=== PATIENT | female | born 1955 | race African-American/Black ===

== ENCOUNTER → 2017-01-03 | Outpatient (CLI) | payer MEDICARE, OTHER ==
--- NOTE | 2017-01-03 15:12 | CT ---
EXAMINATION TYPE: CT sinus wo con DATE OF EXAM: 01/03/2017 COMPARISON: NONE HISTORY: Atypical facial pain CT DLP: 619 mGycm CONTRAST: 0 mL of Omnipaque 350 The paranasal sinuses are examined in the axial plane at 2 mm thick sections. Reconstructed images i n the coronal plane were obtained. There is dental amalgam scatter artifact Mucosal thickening is within the maxillary sinuses. Small air-fluid level may be present more likely on the left. Mucosal thickening is within ethmoid air cells. Retention cyst within the left sphenoi d sinus. Left frontal sinus is hypoplastic but otherwise unremarkable. Mastoid air cells within the [id number] are clear. The septum is evaluated. There is septal deviation to the left. The ostiomeatal units are patent. IMPRESSIONS: 1. Mucosal thickening within maxillary and ethmoid air cells discussed above. 2. Air-fluid level within the left maxillary sinus and possibly within the right maxillary sinus. Cor relate for acute maxillary sinusitis.
== END | disposition home or self-care (01) ==
LOC: RADCTMAIN 12:35
PROVIDERS: ATTEND Otolaryngology Plastic Surgery within the Head & Neck
DX: J34.89 Other specified disorders of nose and nasal sinuses (principal); G50.1 Atypical facial pain
CPT/HCPCS: 70486

== ENCOUNTER → 2017-01-16 | Outpatient (CLI) | payer MEDICARE, OTHER ==
--- NOTE | 2017-01-23 08:57 | MM ---
Reason for exam: screening (asymptomatic). Last mammogram was performed 4 years and 5 months ago. History: Patient is postmenopausal and has history of endometrial cancer at age 34. Family history of breast cancer in cousin at age 62. Physical Findings: A clinical breast exam by your physician is recommended on an annual basis and results should be correlated with mammographic findings. MG Screening Mammo w CAD Bilateral CC and MLO view(s) were taken. Prior study comparison: August 02, 2012, bilateral digital screening mammo w/CAD. July 30, 2010, [facility] DIGITAL LEFT BREAST MAMMOGRAM w/CAD. The breast tissue is heterogeneously dense. This may lower the sensitivity of mammography. No suspicious abnormality. No significant changes when compared with prior studies. ASSESSMENT: Negative, BI-RAD 1 RECOMMENDATION: Routine screening mammogram of both breasts in 1 year.
== END | disposition home or self-care (01) ==
LOC: RADMAMWWP 10:11
PROVIDERS: ATTEND Family Medicine
DX: Z12.31 Encounter for screening mammogram for malignant neoplasm of breast (principal)

== ENCOUNTER 2019-08-07 11:35 | Emergency (ER) | payer MEDICARE, OTHER ==
[2019-08-07] MEDS ORDERED: SODIUM CHLORIDE 0.9% 1,000 ML IV STA (12:08)
--- NOTE | 2019-08-07 12:18 | ED ---
General Adult HPI - General Chief complaint: Dizziness Stated complaint: Syncope Time Seen by Provider: 08/07/19 11:54 Source: patient, RN notes reviewed Mode of arrival: wheelchair Limitations: no limitations - History of Present Illness Initial comments: 64-year-old female with a past medical history of migraines, remote seizures, fibromyalgia, hypertension, anemia presents to the emergency department for a chief complaint of possible syncopal episode. Patient states that she was lying in a chair yesterday when she started having out of body experience. Patient states she could see her self walking. States that suddenly she felt her self slumped back into the chair and wake up. Patient states that her sister was there and was concerned because her sister could not wake her up. Patient states she did have an episode of urinary incontinence throughout this episode. Patient states this never happened before. She does have history of seizures several years ago but that this does not feel similar. Patient feels her normal self at this time except does have a pulsing in her head but denies pain.Patient has no other complaints at this time including shortness of breath, chest pain, abdominal pain, nausea or vomiting, headache, or visual changes. - Related Data Home Medications Medication Instructions Recorded Confirmed DULoxetine HCL [Cymbalta] 60 mg PO BID 10/07/14 08/07/19 Topiramate [Topamax] 100 mg PO BID 12/14/15 08/07/19 Cetirizine HCl 10 mg PO DAILY 08/07/19 08/07/19 Allergies Allergy/AdvReac Type Severity Reaction Status Date / Time lactose Allergy Unknown Abdominal Verified 08/07/19 13:38 Pain, Gas , Nausea codeine Allergy Rash/Hives Verified 08/07/19 13:38 morphine Allergy Rash/Hives/ Verified 08/07/19 13:38 ITCHING tramadol Allergy Rash/Hives Verified 08/07/19 13:38 Review of Systems ROS Statement: Those systems with pertinent positive or pertinent negative responses have been documented in the HPI. ROS Other: All systems not noted in ROS Statement are negative. 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, chronic sinusitis, recurrent uti's, urinary incontinence, frequent nose bleeds, bulging disc in neck and back, scoliosis, carbon monoxide poisoning 2008, hx sleep walking and talking History of Any Multi-Drug Resistant Organisms: None Reported Past Surgical History: No Surgical Hx Reported Additional Past Surgical History / Comment(s): D & C, EGD Past Anesthesia/Blood Transfusion Reactions: Motion Sickness Past Psychological History: Anxiety, Depression Smoking Status: Former smoker Past Alcohol Use History: None Reported Past Drug Use History: None Reported - Past Family History Father Family Medical History: Cancer Additional Family Medical History / Comment(s): type unk for cancer Mother History Unknown: Yes Family Medical History: Congestive Heart Failure (CHF) General Exam Limitations: no limitations General appearance: alert, in no apparent distress Head exam: Present: atraumatic, normocephalic, normal inspection Eye exam: Present: normal appearance, PERRL, EOMI. Absent: scleral icterus, conjunctival injection, periorbital swelling ENT exam: Present: normal exam, mucous membranes moist Neck exam: Present: normal inspection, full ROM. Absent: tenderness, mening ismus, lymphadenopathy Respiratory exam: Present: normal lung sounds bilaterally. Absent: respiratory distress, wheezes, rales, rhonchi, stridor Cardiovascular Exam: Present: regular rate, normal rhythm, normal heart sounds. Absent: systolic murmur, diastolic murmur, rubs, gallop, clicks Neurological exam: Present: alert Psychiatric exam: Present: normal affect, normal mood Course Vital Signs 08/07/19 11:42 Temperature 98.1 F Pulse Rate 70 Respiratory 18 Rate Blood Pressure 173/96 O2 Sat by Pulse 99 Oximetry Medical Decision Making - Medical Decision Making Vitals are stable. CBC CMP unremarkable. Troponin is negative. EKG shows a normal sinus rhythm with a ventricular rate of 67. Chest x-ray shows no acute pulmonary process. CT brain showed no acute intracranial process. Patient was monitored in the emergency department for several hours and did not have any recurring symptoms. I suspect patient had an unwitnessed seizure given history of seizure disorder as well as episode of urinary incontinence during this episode. At this time patient is stable for discharge home to follow up with primary care however I did recommend she returns if she has any additional episodes of this. I discussed this case with attending Dr. Davis who agrees with this assessment and treatment plan. - Lab Data Result diagrams: 08/07/19 12:35 08/07/19 12:35 Lab Results 08/07/19 08/07/19 08/07/19 Range/Units 12:35 12:35 12:35 WBC 4.9 (3.8-10.6) k/uL RBC 3.92 (3.80-5.40) m/uL Hgb 10.4 L (11.4-16.0) gm/dL Hct 33.0 L (34.0-46.0) % MCV 84.3 (80.0-100.0) fL MCH 26.6 (25.0-35.0) pg MCHC 31.6 (31.0-37.0) g/dL RDW 13.2 (11.5-15.5) % Plt Count 267 (150-450) k/uL Neutrophils % 40 % Lymphocytes % 51 % Monocytes % 4 % Eosinophils % 3 % Basophils % 1 % Neutrophils # 1.9 (1.3-7.7) k/uL Lymphocytes # 2.5 (1.0-4.8) k/uL Monocytes # 0.2 (0-1.0) k/uL Eosinophils # 0.1 (0-0.7) k/uL Basophils # 0.0 (0-0.2) k/uL Sodium 142 (137-145) mmol/L Potassium 3.6 (3.5-5.1) mmol/L Chloride 110 H (98-107) mmol/L Carbon Dioxide 24 (22-30) mmol/L Anion Gap 8 mmol/L BUN 10 (7-17) mg/dL Creatinine 0.59 (0.52-1.04) mg/dL Est GFR (CKD-EPI)AfAm >90 (>60 ml/min/1.73 sqM) Est GFR (CKD-EPI)NonAf >90 (>60 ml/min/1.73 sqM) Glucose 118 H (74-99) mg/dL Calcium 9.1 (8.4-10.2) mg/dL Total Bilirubin 0.2 (0.2-1.3) mg/dL AST 23 (14-36) U/L ALT 15 (4-34) U/L Alkaline Phosphatase 97 (38-126) U/L Troponin I <0.012 (0.000-0.034) ng/mL Total Protein 7.2 (6.3-8.2) g/dL Albumin 3.9 (3.5-5.0) g/dL Disposition Clinical Impression: Unresponsive episode Disposition: HOME SELF-CARE Condition: Good Instructions (If sedation given, give patient instructions): Recurrent Seizures in Adults (ED), Syncope (ED) Additional Instructions: Please follow-up with your doctor in one to 2 days. Please return to the emergency room should he have any worsening symptoms or any other episodes. Is patient prescribed a controlled substance at d/c from ED?: No Referrals: Davy Saenz DO [Primary Care Provider] - 1-2 days Time of Disposition: 14:00
[2019-08-07 12:55] LABS: Basophils % (A) 1 %; Eosinophils # (A) 0.1 k/uL (0-0.7); Eosinophils % (A) 3 %; HGB 10.4 gm/dL (11.4-16.0); Lymphocytes # (A) 2.5 k/uL (1.0-4.8); Lymphocytes % (A) 51 %; MCH 26.6 pg (25.0-35.0); MCHC 31.6 g/dL (31.0-37.0); MCV 84.3 fL (80.0-100.0); Mean Platelet Volume 8.8; Monocytes # (A) 0.2 k/uL (0-1.0); Monocytes % (A) 4 %; Neutrophils # (A) 1.9 k/uL (1.3-7.7); Neutrophils % (A) 40 %; Platelet Count 267 k/uL (150-450); RBC 3.92 m/uL (3.80-5.40); RDW 13.2 % (11.5-15.5); WBC 4.9 k/uL (3.8-10.6)
--- NOTE | 2019-08-07 13:14 | CT ---
EXAMINATION TYPE: CT brain wo con DATE OF EXAM: 08/07/2019 COMPARISON: 03/04/2015 INDICATION: Syncope DLP: 1047.4 mGycm, Automated exposure control for dose reduction was used. CONTRAST: None CT of the brain is performed utilizing 3 mm thick sections through the posterior fossa and 3 mm thick sections through the remaining calvarium. Study is performed within 24 hours of arrival to the hosp ital. No abnormal hyperdensity is present to suggest an acute intracranial hemorrhage. No mass lesion is evident. Punctate calcifications within the bilateral basal ganglion likely physiol ogic. No acute infarcts are evident. Ventricles and sulci are appropriate for the patient age. Paranasal sinuses and mastoid air cells within the [id number] are clear. IMPRESSIONS: 1. No acute intracranial process.
[2019-08-07 13:15] LABS: ALT 15 U/L (4-34); AST 23 U/L (14-36); African American GFR (CKD) >90 (>60 ml/min/1.73 sqM); Albumin 3.9 g/dL (3.5-5.0); Alkaline Phosphatase 97 U/L (38-126); Anion Gap 8 mmol/L; Blood Urea Nitrogen 10 mg/dL (7-17); Calcium 9.1 mg/dL (8.4-10.2); Carbon Dioxide 24 mmol/L (22-30); Chloride 110 mmol/L (98-107); Glucose 118 mg/dL (74-99); Non-African American GFR(CKD) >90 (>60 ml/min/1.73 sqM); Potassium 3.6 mmol/L (3.5-5.1); Sodium 142 mmol/L (137-145); Total Bilirubin 0.2 mg/dL (0.2-1.3); Total Protein 7.2 g/dL (6.3-8.2)
--- NOTE | 2019-08-07 13:15 | XR ---
EXAMINATION TYPE: XR chest 1V portable DATE OF EXAM: 08/07/2019 COMPARISON: 12/14/2015 INDICATION: Syncope TECHNIQUE: Single frontal view of the chest is obtained. FINDINGS: The heart size is normal. The pulmonary vasculature is normal. The lungs are clear. IMPRESSION: 1. No acute pulmonary process.
[2019-08-07 14:29] VITALS: BP 176/87; PULSE 62; RESP 16; TEMP 97.7
== END 2019-08-07 14:29 | disposition home or self-care (01) ==
LOC: EC 11:35
DX: R41.89 Other symptoms and signs involving cognitive functions and awareness (principal); R42 Dizziness and giddiness; R55 Syncope and collapse; F41.9 Anxiety disorder, unspecified; F32.9 Major depressive disorder, single episode, unspecified; I10 Essential (primary) hypertension; Z79.899 Other long term (current) drug therapy; Z88.5 Allergy status to narcotic agent; Z91.011 Allergy to milk products; Z87.891 Personal history of nicotine dependence; Z85.42 Personal history of malignant neoplasm of other parts of uterus
CPT/HCPCS: 36415; 70450; 71045; 80053; 84484; 85025; 93005; 96360; 99284

== ENCOUNTER 2020-04-15 11:14 | Day surgery (SDC) | payer MEDICARE ==
--- NOTE | 2020-04-15 08:35 | P.GSHP ---
History of Present Illness H&P Date: 04/15/20 CHIEF COMPLAINT: Colon screen HISTORY OF PRESENT ILLNESS: The patient is a 65-year-old female who presents for colon screen. Lower endoscopy was offered for further evaluation and management. PAST MEDICAL HISTORY: Please see list. PAST SURGICAL HISTORY: Please see list. MEDICATIONS: Please see list. ALLERGIES: Please see list. SOCIAL HISTORY: No illicit drug use FAMILY HISTORY: No reports of Crohn disease or ulcerative colitis. REVIEW OF ORGAN SYSTEMS: CONSTITUTIONAL: No reports of fevers or chills. PHYSICAL EXAM: VITAL SIGNS: Stable GENERAL: Well-developed pleasant in no acute distress. HEENT: No scleral icterus. Extraocular movements grossly intact. Moist buccal mucosa. NECK: Supple without lymphadenopathy. CHEST: Unlabored respirations. Equal bilateral excursions. CARDIOVASCULAR: Regular rate and rhythm. Distal 2+ pulses. ABDOMEN: Soft, nontender, nondistended. MUSCULOSKELETAL: No clubbing, cyanosis, or edema. ASSESSMENT: 1. Colon screen. PLAN: 1. 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, chronic sinusitis, recurrent uti's, urinary incontinence, frequent nose bleeds, bulging disc in neck and back, scoliosis, carbon monoxide poisoning 2007, hx sleep walking and talking History of Any Multi-Drug Resistant Organisms: None Reported Past Surgical History: No Surgical Hx Reported Additional Past Surgical History / Comment(s): D & C, EGD Past Anesthesia/Blood Transfusion Reactions: Motion Sickness Past Psychological History: Anxiety, Depression Past Alcohol Use History: None Reported Past Drug Use History: None Reported - Past Family History Father Family Medical History: Cancer Additional Family Medical History / Comment(s): type unk for cancer Mother History Unknown: Yes Family Medical History: Congestive Heart Failure (CHF) Medications and Allergies Home Medications Medication Instructions Recorded Confirmed Type DULoxetine HCL [Cymbalta] 60 mg PO BID 10/07/14 08/07/19 History Topiramate [Topamax] 100 mg PO BID 12/14/15 08/07/19 History Cetirizine HCl 10 mg PO DAILY 08/07/19 08/07/19 History Allergies Allergy/AdvReac Type Severity Reaction Status Date / Time lactose Allergy Unknown Abdominal Verified 08/07/19 13:38 Pain, Gas , Nausea codeine Allergy Rash/Hives Verified 08/07/19 13:38 morphine Allergy Rash/Hives/ Verified 08/07/19 13:38 ITCHING tramadol Allergy Rash/Hives Verified 08/07/19 13:38
--- NOTE | 2020-04-15 08:50 | P.HPADDEND ---
H&P Addendum H&P Addendum Date: 04/15/20 Patient canceled case
[~2020-04-15 11:14] MED LIST: LACTATED RINGERS 1,000 ML IV SCH; LIDOCAINE 1% (10MG/ML) FOR IV START INTRADERMA PRN
[2020-04-15 11:33] VITALS: TEMP 96.6
[2020-04-15] MEDS ORDERED: PROPOFOL 10 MG/ML 20 ML VIAL IV ONE (12:26)
--- NOTE | 2020-04-15 12:52 | P.PCN ---
Date of Procedure: 04/15/20 Description of Procedure: PREOPERATIVE DIAGNOSIS: Rectal bleeding with melena POSTOPERATIVE DIAGNOSIS: Internal/external hemorrhoids, complicated, grade 3 Diverticulosis, scattered. Poor prep OPERATION: Colonoscopy to the cecum, ileocecal valve and appendiceal orifice. SURGEON: Ammy Almaraz MD. ANESTHESIA: MAC. INDICATIONS: The patient is a 65-year-old female who presents with melena including rectal bleeding for over 3 weeks. Lower endoscopy are for further diagnostic assessment. Benefits and risks were described and informed consent was obtained. DESCRIPTION OF PROCEDURE: The patient had undergone Suprep. The patient had been brought into the operating room and laid in the left lateral decubitus position. After adequate intravenous sedation, the rectum was examined with 2% lidocaine jelly. No external hemorrhoids were encountered. The rectal tone was within normal limits. No lesions were palpated in the rectal vault. An Olympus colonoscope was advanced until the cecum, ileocecal valve and appendiceal orifice. The prep was poor limiting complete view of the mucosa. Scattered diverticulosis was encountered. No colonic polyps were found. No evidence of focal colitis was found. Retroflexion of the scope demonstrated grade 3 internal hemorrhoids without active bleeding or inflammation. The colon was desufflated. The patient had tolerated the procedure well. Withdrawal time was over 6 minutes. FINDINGS: Aronchick preparation quality scale 3 (1-5) Internal hemorrhoids, grade 3 External prolapsed hemorrhoids, grade 3 Scattered diverticulosis No arteriovenous malformations. No adenomatous polyps. No focal colitis. RECOMMENDATIONS: Lower endoscopy in 5 2025 Recommend liquid diet prior Plan - Discharge Summary New Discharge Prescriptions: Continue DULoxetine HCL [Cymbalta] 60 mg PO BID Cetirizine HCl 10 mg PO DAILY Discharge Medication List DULoxetine HCL [Cymbalta] 60 mg PO BID 10/07/14 [History] Cetirizine HCl 10 mg PO DAILY 08/07/19 [History] Follow up Appointment(s)/Referral(s): Ammy Almaraz MD [STAFF PHYSICIAN] - 04/21/20 Patient Instructions/Handouts: Diverticulosis Diet (GEN), Diverticulosis (ED) Activity/Diet/Wound Care/Special Instructions: Repeat colonoscopy years, 2025. Recommend liquid diet Discharge Disposition: HOME SELF-CARE
[2020-04-15 13:38] VITALS: BP 142/76; PULSE 88; RESP 20
--- NOTE | 2020-04-17 08:39 | CDI ---
Date: 04.17.20 CDS/Balloon Maker Name: Jeannie Pérez Phone: If any questions, call Tere [facility] [employer] at [phone] Patient Name: Mckayla Munoz Admit Date 04.15.20 Discharge Date: 04.15.20 ATTENTION: The [facility] Coding Staff appreciate your assistance in clarifying documentation. Please respond to the clarification below the line at the bottom and electronically sign. The [facility] Coding staff will review the response and follow-up if needed. Please note: Queries are made part of the Legal Health Record. If you have any questions, please contact the [employer]. Dear Dr. Almaraz In order to code to the greatest specificity and for the greatest reimbursement I need the following information: In the description of procedure you have documented no external hemorrhoids were encountered, but in the findings you have documented external prolapsed hemorrhoids, grade 3. Please clarify. Thank you for your kind consideration. DESCRIPTION OF PROCEDURE: The patient had undergone Suprep. The patient had been brought into the operating room and laid in the left lateral decubitus position. After adequate intravenous sedation, the rectum was examined with 2% lidocaine jelly. External hemorrhoids were encountered. The rectal tone was within normal limits. No lesions were palpated in the rectal vault. An Olympus colonoscope was advanced until the cecum, ileocecal valve and appendiceal orifice. The prep was poor limiting complete view of the mucosa. Scattered diverticulosis was encountered. No colonic polyps were found. No evidence of focal colitis was found. Retroflexion of the scope demonstrated grade 3 internal hemorrhoids without active bleeding or inflammation. The colon was desufflated. The patient had tolerated the procedure well. Withdrawal time was over 6 minutes. 04/17/[address] [facility]
== END 2020-04-15 13:38 | disposition home or self-care (01) ==
LOC: ORWHC2ENDO 11:14
PROVIDERS: ATTEND Surgery Plastic and Reconstructive Surgery
DX: K57.31 Diverticulosis of large intestine without perforation or abscess with bleeding (principal); K64.2 Third degree hemorrhoids; K64.8 Other hemorrhoids; M79.7 Fibromyalgia; K21.9 Gastro-esophageal reflux disease without esophagitis; I10 Essential (primary) hypertension; G43.909 Migraine, unspecified, not intractable, without status migrainosus; G40.909 Epilepsy, unspecified, not intractable, without status epilepticus; G57.83 Other specified mononeuropathies of bilateral lower limbs; G56.83 Other specified mononeuropathies of bilateral upper limbs; I49.9 Cardiac arrhythmia, unspecified; J32.9 Chronic sinusitis, unspecified; R32 Unspecified urinary incontinence; M50.20 Other cervical disc displacement, unspecified cervical region; M51.9 Unspecified thoracic, thoracolumbar and lumbosacral intervertebral disc disorder; M41.9 Scoliosis, unspecified; F41.9 Anxiety disorder, unspecified; F32.9 Major depressive disorder, single episode, unspecified; Z85.42 Personal history of malignant neoplasm of other parts of uterus; Z86.69 Personal history of other diseases of the nervous system and sense organs; Z87.19 Personal history of other diseases of the digestive system; Z86.2 Personal history of diseases of the blood and blood-forming organs and certain disorders involving the immune mechanism; Z87.440 Personal history of urinary (tract) infections; Z91.89 Other specified personal risk factors, not elsewhere classified; Z98.890 Other specified postprocedural states; Z87.898 Personal history of other specified conditions; Z79.899 Other long term (current) drug therapy; Z91.011 Allergy to milk products; Z88.5 Allergy status to narcotic agent; Z80.9 Family history of malignant neoplasm, unspecified; Z82.49 Family history of ischemic heart disease and other diseases of the circulatory system
CPT/HCPCS: 45378; J2704

== ENCOUNTER 2020-04-30 07:36 | Day surgery (SDC) | payer MEDICARE ==
[2020-04-27 12:07] VITALS: BMI 31.8
--- NOTE | 2020-04-30 05:37 | P.GSHP ---
History of Present Illness H&P Date: 04/30/20 CHIEF COMPLAINT: GERD HISTORY OF PRESENT ILLNESS: The patient is a 65-year-old female who presents reports gastroesophageal reflux disease. Upper endoscopy was offered for further evaluation and management. PAST MEDICAL HISTORY: Please see list. PAST SURGICAL HISTORY: Please see list. MEDICATIONS: Please see list. ALLERGIES: Please see list. SOCIAL HISTORY: No illicit drug use FAMILY HISTORY: No reports of Crohn disease or ulcerative colitis. REVIEW OF ORGAN SYSTEMS: CONSTITUTIONAL: No reports of fevers or chills. GI: Denies any blood in stools or constipation. PHYSICAL EXAM: VITAL SIGNS: Stable GENERAL: Well-developed and pleasant in no acute distress. HEENT: No scleral icterus. Extraocular movements grossly intact. Moist buccal mucosa. NECK: Supple without lymphadenopathy. CHEST: Unlabored respirations. Equal bilateral excursions. CARDIOVASCULAR: Regular rate and rhythm. Distal 2+ pulses. ABDOMEN: Soft, nondistended. MUSCULOSKELETAL: No clubbing, cyanosis, or edema. ASSESSMENT: 1. Gastroesophageal reflux disease PLAN: 1. 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, chronic sinusitis, recurrent uti's, urinary incontinence, hx frequent nose bleeds, bulging disc in neck and back, scoliosis, carbon monoxide poisoning 2007, hx sleep walking and talking History of Any Multi-Drug Resistant Organisms: None Reported Past Surgical History: No Surgical Hx Reported Additional Past Surgical History / Comment(s): D & C, EGD, colonoscopy Past Anesthesia/Blood Transfusion Reactions: Motion Sickness Smoking Status: Former smoker - Past Family History Father Family Medical History: Cancer Additional Family Medical History / Comment(s): type unk for cancer Mother History Unknown: Yes Family Medical History: Congestive Heart Failure (CHF) Medications and Allergies Home Medications Medication Instructions Recorded Confirmed Type No Known Home Medications 04/27/20 04/27/20 History Allergies Allergy/AdvReac Type Severity Reaction Status Date / Time lactose Allergy Unknown Abdominal Verified 04/27/20 12:02 Pain, Gas , Nausea codeine Allergy Rash/Hives Verified 04/27/20 12:02 morphine Allergy Rash/Hives/ Verified 04/27/20 12:02 ITCHING tramadol Allergy Rash/Hives Verified 04/27/20 12:02
[~2020-04-30 07:36] MED LIST changes: +DEXAMETHASONE SOD PHOSPHATE 4 MG/ML 1 ML VIAL IV ONE; +ONDANSETRON 4 MG/2 ML VIAL IVP ONE
[2020-04-30 08:03] VITALS: RESP 16; TEMP 97
[2020-04-30] MEDS ORDERED: LIDOCAINE 1% INJ 10MG/ML (20 ML MDV) ONE (08:27)
[2020-04-30] MEDS ORDERED: PROPOFOL 10 MG/ML 20 ML VIAL IV ONE (08:27)
--- NOTE | 2020-04-30 08:44 | P.PCN ---
Date of Procedure: 04/30/20 Description of Procedure: PREOPERATIVE DIAGNOSIS: Gastroesophageal reflux disease. Anemia POSTOPERATIVE DIAGNOSIS: Gastroesophageal reflux disease. Anemia Gastritis OPERATION: Esophagogastroduodenoscopy with biopsies along antrum. SURGEON: Ammy Almaraz MD ANESTHESIA: MAC. INDICATIONS: The patient is a 65-year-old female who presents with a history of reflux disease. Benefits and risks of the procedure were described. Informed consent was obtained. DESCRIPTION: The patient was brought into the endoscopy suite and laid in the left lateral decubitus position. An Olympus gastroscope was passed along the posterior oropharynx down to the distal esophagus where the squamocolumnar junction was encountered at 35 cm from the incisors. The stomach was entered and no bile reflux was found. Additional findings are listed below. Biopsies with cold forceps were obtained of the antrum. The first through third portion of the duodenum was examined and unremarkable. Retroflexion of the scope confirmed Hill grade 3 lower esophageal valve. The squamocolumnar junction demonstrated LA grade A erosive esophagitis. The stomach was desufflated. The patient tolerated the procedure well. FINDINGS: Squamocolumnar junction 35 cm from the incisors. Diaphragmatic hiatus at 35 cm. Hill grade 3 lower esophageal valve. LA grade A erosive esophagitis. No active duodenitis. Chronic gastritis RECOMMENDATIONS: Upper endoscopy as needed. Plan - Discharge Summary Discharge Rx Participant: No New Discharge Prescriptions: No Action No Known Home Medications Discharge Medication List No Known Home Medications 04/27/20 [History] Follow up Appointment(s)/Referral(s): Ammy Almaraz MD [STAFF PHYSICIAN] - 05/12/20 Patient Instructions/Handouts: Gastritis (DC), Diet for Stomach Ulcers and Gastritis (ED) Discharge Disposition: HOME SELF-CARE
[2020-04-30 09:02] VITALS: BP 171/78; PULSE 66
== END 2020-04-30 09:15 | disposition home or self-care (01) ==
LOC: ORWHC2ENDO 07:36
PROVIDERS: ATTEND Surgery Plastic and Reconstructive Surgery
DX: K21.00 Gastro-esophageal reflux disease with esophagitis, without bleeding (principal); D64.9 Anemia, unspecified; K29.50 Unspecified chronic gastritis without bleeding; M79.7 Fibromyalgia; Z85.42 Personal history of malignant neoplasm of other parts of uterus; Z87.891 Personal history of nicotine dependence; Z82.49 Family history of ischemic heart disease and other diseases of the circulatory system; Z88.5 Allergy status to narcotic agent; Z87.440 Personal history of urinary (tract) infections
CPT/HCPCS: 88305; 43239; J2001; J2704

== ENCOUNTER → 2020-05-18 | Outpatient (CLI) | payer MEDICARE, OTHER ==
[2020-05-18 23:50] LABS: HCT 32.6 % (37.2-46.3); HGB 10.7 g/dL (12.0-15.0); MCHC 32.8 g/dL (32.0-37.0); MCV 82.3 fL (80.0-97.0); Mean Platelet Volume 12.7 fL (9.5-12.2); Platelet Count 315 X 10*3/uL (140-440); RBC 3.96 X 10*6/uL (4.10-5.20); WBC 5.82 X 10*3/uL (4.50-10.00)
[2020-05-19 00:42] LABS: INR 1.02 (0.90-1.11); Partial Thromboplastin Time 26.4 sec (23.5-31.0); Prothrombin Time 11.1 sec (9.9-11.9)
[2020-05-19 03:53] LABS: Hemoglobin A1C 6.4 % (4.0-6.0)
[2020-05-19 04:15] LABS: % Iron Saturation 17.09 (12.00-45.00); ALT 26 U/L (8-44); AST 30 U/L (13-35); African American GFR (CKD) 90.9 (60.0-200.0); Albumin/Globulin Ratio 1.81 (1.60-3.17); Alkaline Phosphatase 120 U/L (41-126); BUN/Creat Ratio 11.25 Ratio (12.00-20.00); Calcium 10.1 mg/dL (8.7-10.3); Carbon Dioxide 25.2 mmol/L (21.6-31.8); Chloride 108 mmol/L (96-109); Chol/HDL Ratio 3.55; Cholesterol 195 mg/dL (0-200); Globulin 2.6 g/dL (1.6-3.3); Glucose 115 mg/dL (70-110); Iron 67 ug/dL (50-170); LDL Cholesterol,Calculated 117.2 mg/dL (0.0-131.0); Magnesium 1.7 mg/dL (1.5-2.4); Non-African American GFR(CKD) 78.5 (60.0-200.0); Phosphorus 3.8 mg/dL (2.4-5.1); Potassium 3.8 mmol/L (3.5-5.5); Sodium 144 mmol/L (135-145); Total Bilirubin 0.3 mg/dL (0.3-1.2); Total Iron Binding Capacity 392 ug/dL (228-460); Total Protein 7.3 g/dL (6.2-8.2)
[2020-05-19 04:23] LABS: Ferritin 41.9 ng/mL (10.0-291.0)
[2020-05-19 05:07] LABS: Folate, Serum >24.0 ng/mL
[2020-05-19 12:55] LABS: Zinc, Serum 73 ug/dL (60-130)
[2020-05-20 06:34] LABS: Vitamin A 42 ug/dL (38-106)
[2020-05-20 06:42] LABS: Vit B1(Thiamine) 39 ug/L (38-122)
== END | disposition home or self-care (01) ==
LOC: LABWHC1 14:33
PROVIDERS: ATTEND Surgery Plastic and Reconstructive Surgery
DX: E55.9 Vitamin D deficiency, unspecified (principal); E21.1 Secondary hyperparathyroidism, not elsewhere classified; E66.01 Morbid (severe) obesity due to excess calories; E89.1 Postprocedural hypoinsulinemia; N19 Unspecified kidney failure; D50.8 Other iron deficiency anemias; K90.89 Other intestinal malabsorption; K74.1 Hepatic sclerosis; K50.90 Crohn's disease, unspecified, without complications
CPT/HCPCS: 36415; 80053; 80061; 82306; 82525; 82607; 82728; 82746; 83036; 83540; 83550; 83735; 83970; 84100; 84134; 84255; 84425; 84443; 84590; 84630; 85027; 85610; 85730

== ENCOUNTER → 2022-03-15 | Outpatient (CLI) | payer MEDICARE, OTHER ==
--- NOTE | 2022-03-16 07:31 | MR ---
EXAMINATION TYPE: MR brain wo/w con DATE OF EXAM: 03/15/2022 3:37 PM CLINICAL INDICATION:Female, 67 years old with history of R51.0 HEADACHE WITH ORTHOSTATIC COMPONENT; COMPARISON: CT brain 08/07/2019, MRI brain 01/02/2015 TECHNIQUE: Multi planar, multi sequence imaging was performed through the brain including: T1, T2, In version recovery, susceptibility weighted imaging and gradient echo imaging and Diffusion weighted im aging. The patient was then given intravenous contrast and multi planar, T1 fat-saturation images wer e obtained. IV Contrast: 8 cc Gadavist FINDINGS: The cerebellar tonsils to 2 mm below the foramen magnum. The purvis-white junctions, ventricular system , basal cisterns appear unremarkable. Diffusion-weighted imaging shows no evidence of restricted diff usion to suggest acute/subacute infarct. Intracranial arterial flow voids are maintained. Midline str uctures show no abnormality. Few scattered foci of high T2 signal intensity are seen within the periv entricular and deep white matter. The susceptibility weighted images do not reveal any evidence for m icro-hemorrhage. After administration of gadolinium, no abnormal enhancement is seen. The bone marrow signal is within normal limits. Paranasal sinuses and mastoid air cells: Mild scattered paranasal sinus disease. Visualized orbits: Orbital contents are intact. IMPRESSION: 1. No evidence of intracranial mass, acute/subacute infarct, or abnormal enhancement. 2. Minimal cerebellar tonsillar ectopia 3. Minimal nonspecific white matter changes, likely related t o small vessel ischemic disease
== END | disposition home or self-care (01) ==
LOC: RADMRIMAIN 14:50
PROVIDERS: ATTEND Family Medicine
DX: R90.82 White matter disease, unspecified (principal); R51.0 Headache with orthostatic component, not elsewhere classified; Q04.8 Other specified congenital malformations of brain
CPT/HCPCS: 70553; A9585

== ENCOUNTER → 2022-06-16 | Outpatient (CLI) | payer MEDICARE, OTHER ==
--- NOTE | 2022-06-16 16:01 | MR ---
EXAMINATION TYPE: MR brain wo con DATE OF EXAM: 06/16/2022 2:43 PM COMPARISON: MRI brain 03/15/2022. 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 No gadolinium was given. FINDINGS: The cerebellar tonsils to 2 mm below the foramen magnum. The purvis-white junctions, ventricular system , basal cisterns appear unremarkable. Diffusion-weighted imaging shows no evidence of restricted diff usion to suggest acute/subacute infarct. Intracranial arterial flow voids are maintained. Midline str uctures show no abnormality. Few scattered foci of high T2 signal intensity are seen within the periv entricular and deep white matter. The susceptibility weighted images do not reveal any evidence for m icro-hemorrhage. The bone marrow signal is within normal limits. Paranasal sinuses and mastoid air cells: Paranasal sinus disease most pronounced involving the maxill paulie sinuses and ethmoid air cells. Visualized orbits: Orbital contents are intact. IMPRESSION: 1. No evidence of intracranial mass, acute/subacute infarct, or significant change from prior.. 2. Minimal cerebellar tonsillar ectopiaNonspecific white matter changes, likely related to small vess el ischemic disease 3. Minimal nonspecific white matter changes, likely related to small vessel ischemic disease
== END | disposition home or self-care (01) ==
LOC: RADMRIMAIN 14:01
PROVIDERS: ATTEND Psychiatry & Neurology Neurology
DX: R90.82 White matter disease, unspecified (principal); R27.0 Ataxia, unspecified
CPT/HCPCS: 70551

== ENCOUNTER 2022-07-21 15:25 | Emergency (ER) | payer MEDICARE, OTHER ==
[2022-07-21 16:02] VITALS: TEMP 97.7
[2022-07-21] MEDS ORDERED: SODIUM CHLORIDE 0.9% 500 ML 500 ML IV STA (16:07)
--- NOTE | 2022-07-21 16:08 | ED ---
Recheck HPI - General Chief Complaint: Recheck/Abnormal Lab/Rx Stated Complaint: NEEDS PLASMA INFUSION-PCP/LABS SENT Time Seen by Provider: 07/21/22 16:07 Source: patient, RN notes reviewed, old records reviewed Mode of arrival: ambulatory Limitations: no limitations - History of Present Illness Initial Comments: This is a 67-year-old female to the ER. She presents today for abnormal lab values. Patient was told she has a low potassium level and sensitivity ER for further management. Patient is very upset that she is currently in the emergency department or the hospital. She does not participate in history of present illness MD Complaint: abnormal lab (Low potassium) -: unknown Returns Today for: Called Because of Abnormal Lab/Test Symptoms Since Prior Visit: no new symptoms Associated Symptoms: none Treatments Prior to Arrival: other (0) - Related Data Home Medications Medication Instructions Recorded Confirmed Chlorthalidone [Hygroton] 25 mg PO DAILY 07/21/22 07/21/22 Docusate [Colace] 100 mg PO DAILY 07/21/22 07/21/22 Pregabalin 75 mg PO TID 07/21/22 07/21/22 amLODIPine [Norvasc] 10 mg PO DAILY 07/21/22 07/21/22 sitaGLIPtin [Januvia] 100 mg PO DAILY 07/21/22 07/21/22 Allergies Allergy/AdvReac Type Severity Reaction Status Date / Time lactose Allergy Unknown Abdominal Verified 07/21/22 17:26 Pain, Gas , Nausea codeine Allergy Rash/Hives Verified 07/21/22 17:26 morphine Allergy Rash/Hives/ Verified 07/21/22 17:26 ITCHING tramadol Allergy Rash/Hives Verified 07/21/22 17:26 Review of Systems ROS Statement: Those systems with pertinent positive or pertinent negative responses have been documented in the HPI. ROS Other: All systems not noted in ROS Statement are negative. 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, chronic sinusitis, recurrent uti's, urinary incontinence, frequent nose bleeds, bulging disc in neck and back, scoliosis, carbon monoxide poisoning 2008, hx sleep walking and talking History of Any Multi-Drug Resistant Organisms: None Reported Past Surgical History: No Surgical Hx Reported Additional Past Surgical History / Comment(s): D & C, EGD Past Anesthesia/Blood Transfusion Reactions: Motion Sickness Past Psychological History: Anxiety, Depression Smoking Status: Never smoker Past Alcohol Use History: None Reported Past Drug Use History: None Reported - Past Family History Father Family Medical History: Cancer Additional Family Medical History / Comment(s): type unk for cancer Mother History Unknown: Yes Family Medical History: Congestive Heart Failure (CHF) General Exam Limitations: no limitations General appearance: alert, in no apparent distress Head exam: Present: atraumatic, normocephalic, normal inspection Eye exam: Present: normal appearance, PERRL, EOMI. Absent: scleral icterus, conjunctival injection, periorbital swelling ENT exam: Present: normal exam, mucous membranes moist Neck exam: Present: normal inspection. Absent: tenderness, meningismus, lymphadenopathy Respiratory exam: Present: normal lung sounds bilaterally. Absent: respiratory distress, wheezes, rales, rhonchi, stridor Cardiovascular Exam: Present: regular rate, normal rhythm, normal heart sounds. Absent: systolic murmur, diastolic murmur, rubs, gallop, clicks GI/Abdominal exam: Present: soft, normal bowel sounds. Absent: distended, tenderness, guarding, rebound, rigid Extremities exam: Present: normal inspection, full ROM, normal capillary refill. Absent: tenderness, pedal edema, joint swelling, calf tenderness Back exam: Present: normal inspection Neurological exam: Present: alert, oriented X3, CN II-XII intact Psychiatric exam: Present: normal affect, normal mood Skin exam: Present: warm, dry, intact, normal color. Absent: rash Course Vital Signs 07/21/22 07/21/22 15:55 18:28 Temperature 97.7 F Pulse Rate 71 72 Respiratory 18 16 Rate Blood Pressure 137/73 131/82 O2 Sat by Pulse 97 98 Oximetry - Reevaluation(s) Reevaluation #1: 07/21/22 21:34 Medical records reviewed Reevaluation #2: 07/21/22 21:34 Patient's potassium is low given potassium replacement Patient does appear to fill her potassium replacement and a garbage and did not take discharge instructions Reevaluation #3: 07/21/22 21:34 Patient remains without complaint Reevaluation #4: 07/21/22 21:35 Was pt. sent in by a medical professional or institution? @ -Yes patient was sent in after outpatient lab values showed low potassium Did you speak to anyone other than the patient for history? @ -no Did you review nursing and triage notes? @ -agree Were old charts reviewed? @ -no Differential Diagnosis? @ -prior EKG interpreted by me (3pts min.)? @ -yes X-rays interpreted by me (1pt min.)? @ -no CT interpreted by me (1pt min.)? @ -no U/S interpreted by me (1pt. min.)? @ -no What testing was considered but not performed? (CT, X-rays, U/S, labs)? Why? @ -no What meds were considered but not given? Why? @ -no Did you discuss the management of the patient with other professionals? @ -no Did you reconcile home meds? @ -no Was smoking cessation discussed for >3mins.? @ -no Was critical care preformed (if so, how long)? @ -no Were there social determinants of health that impacted care today? How? (Homelessness, low income, unemployed, alcoholism, drug addiction, transportation, low edu. Level, literacy, decrease access to med. care, detention, rehab)? @ -no Was there de-escalation of care discussed even if they declined? (Discuss DNR or withdrawal of care, Hospice)? @ -no What co-morbidities impacted this encounter? (DM, HTN, Smoking, COPD, CAD, Cancer, CVA, Hep., AIDS, mental health diagnosis, sleep apnea, morbid obesity)? @ -none Was patient admitted / discharged? @ - Undiagnosed new problem with uncertain prognosis? @ -no Drug Therapy requiring intensive monitoring for toxicity (Heparin, Nitro, Insulin, Cardizem)? @ -no Were any procedures done? @ -no Diagnosis/symptom? @ -Hypokalemia Acute, or Chronic, or Acute on Chronic? @ -no Uncomplicated (without systemic symptoms) or Complicated (systemic symptoms)? @ -uncomplicated Side effects of treatment? @ -no Exacerbation, Progression, or Severe Exacerbation] @ -no Poses a threat to life or bodily function? @ -yes secondary to arrhythmia from electrolyte arrangement Medical Decision Making - Medical Decision Making 67 female to the emergency department. Patient presents today for evaluation of abnormal outpatient labs. Low potassium. No other complaints. Patient's findings are similar here in the ER she did not take potassium supplementation and discharged emergency department unhappy but did not make clear why - Lab Data Result diagrams: 07/21/22 16:42 07/21/22 16:42 Lab Results 07/21/22 07/21/22 Range/Units 16:42 16:42 WBC 6.7 (3.8-10.6) k/uL RBC 4.25 (3.80-5.40) m/uL Hgb 11.4 (11.4-16.0) gm/dL Hct 34.0 (34.0-46.0) % MCV 79.9 L (80.0-100.0) fL MCH 26.9 (25.0-35.0) pg MCHC 33.6 (31.0-37.0) g/dL RDW 13.3 (11.5-15.5) % Plt Count 450 (150-450) k/uL MPV 8.7 Neutrophils % 41 % Lymphocytes % 50 % Monocytes % 4 % Eosinophils % 2 % Basophils % 0 % Neutrophils # 2.8 (1.3-7.7) k/uL Lymphocytes # 3.3 (1.0-4.8) k/uL Monocytes # 0.2 (0-1.0) k/uL Eosinophils # 0.1 (0-0.7) k/uL Basophils # 0.0 (0-0.2) k/uL Sodium 137 (137-145) mmol/L Potassium 2.7 L* (3.5-5.1) mmol/L Chloride 89 L (98-107) mmol/L Carbon Dioxide 36 H (22-30) mmol/L Anion Gap 12 mmol/L BUN 11 (7-17) mg/dL Creatinine 0.72 (0.52-1.04) mg/dL Est GFR (CKD-EPI)AfAm >90 (>60 ml/min/1.73 sqM) Est GFR (CKD-EPI)NonAf 89 (>60 ml/min/1.73 sqM) Glucose 128 H (74-99) mg/dL Calcium 9.6 (8.4-10.2) mg/dL Phosphorus 2.7 (2.5-4.5) mg/dL Magnesium 2.0 (1.6-2.3) mg/dL Total Bilirubin 0.5 (0.2-1.3) mg/dL AST 33 (14-36) U/L ALT 23 (4-34) U/L Alkaline Phosphatase 99 (38-126) U/L Total Protein 7.9 (6.3-8.2) g/dL Albumin 4.4 (3.5-5.0) g/dL - EKG Data -: EKG Interpreted by Me (EKG is sinus 59 ND 195 QRS 91 QTc 417) Disposition Clinical Impression: Hypokalemia Disposition: HOME SELF-CARE Condition: Good Instructions (If sedation given, give patient instructions): Hypokalemia (ED) Is patient prescribed a controlled substance at d/c from ED?: No Referrals: Davy Saenz DO [Primary Care Provider] - 1-2 days Time of Disposition: 17:50
[2022-07-21 16:55] LABS: Basophils % (A) 0 %; Eosinophils # (A) 0.1 k/uL (0-0.7); Eosinophils % (A) 2 %; HGB 11.4 gm/dL (11.4-16.0); Lymphocytes # (A) 3.3 k/uL (1.0-4.8); Lymphocytes % (A) 50 %; MCH 26.9 pg (25.0-35.0); MCHC 33.6 g/dL (31.0-37.0); MCV 79.9 fL (80.0-100.0); Mean Platelet Volume 8.7; Monocytes # (A) 0.2 k/uL (0-1.0); Monocytes % (A) 4 %; Neutrophils # (A) 2.8 k/uL (1.3-7.7); Neutrophils % (A) 41 %; Platelet Count 450 k/uL (150-450); RBC 4.25 m/uL (3.80-5.40); RDW 13.3 % (11.5-15.5); WBC 6.7 k/uL (3.8-10.6)
[2022-07-21 17:12] LABS: ALT 23 U/L (4-34); AST 33 U/L (14-36); African American GFR (CKD) >90 (>60 ml/min/1.73 sqM); Albumin 4.4 g/dL (3.5-5.0); Alkaline Phosphatase 99 U/L (38-126); Anion Gap 12 mmol/L; Blood Urea Nitrogen 11 mg/dL (7-17); Calcium 9.6 mg/dL (8.4-10.2); Carbon Dioxide 36 mmol/L (22-30); Chloride 89 mmol/L (98-107); Glucose 128 mg/dL (74-99); Non-African American GFR(CKD) 89 (>60 ml/min/1.73 sqM); Phosphorus 2.7 mg/dL (2.5-4.5); Sodium 137 mmol/L (137-145); Total Bilirubin 0.5 mg/dL (0.2-1.3); Total Protein 7.9 g/dL (6.3-8.2)
[2022-07-21 17:14] LABS: Potassium 2.7 mmol/L (3.5-5.1)
[2022-07-21] MEDS ORDERED: POTASSIUM BICARBONATE/CIT AC 20 MEQ TABLET.EFF PO ONE ×2 (18:00→19:00)
[2022-07-21 18:30] VITALS: BP 131/82; PULSE 72; RESP 16
== END 2022-07-21 18:32 | disposition home or self-care (01) ==
LOC: EC 15:25
DX: E87.6 Hypokalemia (principal); I10 Essential (primary) hypertension; F41.9 Anxiety disorder, unspecified; F32.A Depression, unspecified; Z79.84 Long term (current) use of oral hypoglycemic drugs; Z79.899 Other long term (current) drug therapy; Z88.5 Allergy status to narcotic agent; Z88.8 Allergy status to other drugs, medicaments and biological substances
CPT/HCPCS: 36415; 80053; 83735; 84100; 85025; 93005; 96360; 99283

== ENCOUNTER → 2022-07-21 | Outpatient (CLI) | payer MEDICARE, OTHER ==
[2022-07-21 14:08] LABS: ALT 24 U/L (4-34); AST 37 U/L (14-36); African American GFR (CKD) 86 (>60 ml/min/1.73 sqM); Albumin 4.5 g/dL (3.5-5.0); Alkaline Phosphatase 98 U/L (38-126); Blood Urea Nitrogen 12 mg/dL (7-17); Calcium 9.5 mg/dL (8.4-10.2); Chloride 91 mmol/L (98-107); Globulin 4.3 g/dL; Glucose 110 mg/dL (74-99); Non-African American GFR(CKD) 75 (>60 ml/min/1.73 sqM); Sodium 138 mmol/L (137-145); Total Bilirubin 0.5 mg/dL (0.2-1.3); Total Protein 8.8 g/dL (6.3-8.2)
[2022-07-21 14:15] LABS: Anion Gap 9 mmol/L
[2022-07-21 14:18] LABS: Carbon Dioxide 38 mmol/L (22-30); Potassium 2.5 mmol/L (3.5-5.1)
--- NOTE | 2022-07-22 09:12 | CT ---
EXAMINATION TYPE: CT angio head neck CT DLP: 1464.50 mGycm, Automated exposure control for dose reduction was used. DATE OF EXAM: 07/21/2022 3:30 PM COMPARISON: MR brain 06/16/2022. CLINICAL INDICATION:Female, 67 years old with history of Ataxia R27.0; PHH, Ataxia, c/o balance loss, dizziness, neck swelling TECHNIQUE: Axially acquired helical CT angiogram of the head and neck was obtained with contrast. Axi al images are supplemented with 3D reconstructions which [facility] NASCET criteria used. Contrast used:65 mL of Isovue 370 with IV Contrast, Oral contrast used: None. FINDINGS: CTA HEAD: No evidence of acute intracranial hemorrhage, mass effect, or midline shift. The ventricles, sulci, a nd cisterns are unremarkable. The visualized portions of the internal carotid arteries, middle cerebral arteries, anterior cerebral arteries, and posterior cerebral arteries are patent. The basilar and vertebral arteries are patent. The right vertebral artery intracranial portion is hyp oplastic. Mucosal thickening of the paranasal sinuses with suspected layering secretions within the maxillary s inuses. CTA NECK: Right Carotid System: The common carotid artery and external carotid artery are patent. The carotid bifurcation demonstrate s no evidence of hemodynamically significant stenosis. The remaining portions of the internal carotid artery demonstrate normal size without significant narrowing. Left Carotid System: The common carotid artery and external carotid artery are patent. The carotid bifurcation demonstrate s no evidence of hemodynamically significant stenosis. The remaining portions of the internal carotid artery demonstrate normal size without significant narrowing. Vertebral arteries are patent without evidence hemodynamically significant stenosis. Dominant left ve rtebral artery. There is a three-vessel aortic arch. The origins of the great vessels are patent. No evidence of hemo dynamically significant stenosis. Upper thorax: IMPRESSION: 1. No evidence of dissection of the cervical internal carotid arteries or vertebral arteries or any e vidence of significant stenosis at the carotid bifurcations. 2. No evidence of intracranial high-grade stenosis or intracranial aneurysm. 3. 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 Paranasal sinus disease.
== END | disposition home or self-care (01) ==
LOC: RADCTMAIN 13:04
PROVIDERS: ATTEND Psychiatry & Neurology Neurology
DX: J34.9 Unspecified disorder of nose and nasal sinuses (principal); R27.0 Ataxia, unspecified; R22.1 Localized swelling, mass and lump, neck
CPT/HCPCS: 80053; 70496; 70498; 36415; Q9967

== ENCOUNTER → 2022-09-21 | Outpatient (CLI) | payer MEDICARE, OTHER ==
--- NOTE | 2022-09-22 20:19 | MM ---
Reason for Exam: Screening (asymptomatic). Last mammogram was performed 5 year(s) and 8 month(s) ago. Patient History: Menarche at age 13. First Full-Term at age 19. Postmenopausal. Patient has history of breast feeding. Endometrial cancer, age 34. Maternal cousin had breast cancer, age 62. Paternal cousin had ovarian cancer under age 50. Paternal cousin had ovarian cancer. Risk Values: Krystal 5 year model risk: 1.7%. NCI Lifetime model risk: 6.0%. Prior Study Comparison: 06/24/2010 Bilateral Screening Mammogram, [facility]. 07/30/2010 Left Diagnostic Mammogram, [facility]. 08/02/2012 Bilateral Screening Mammogram, [facility]. 01/16/2017 Bilateral Screening Mammogram, [facility]. Tissue Density: There are scattered fibroglandular densities. Findings: Analyzed By CAD. Microcalcifications anterior upper outer quadrant right breast have increased. Further magnification views are recommended. Otherwise, no significant change. Overall Assessment: Incomplete: need additional imaging evaluation, BI-RAD 0 Management: Special View Mammogram of the right breast. For the increasing grouped anterior upper outer quadrant microcalcifications. [facility] will attempt to contact patient to return for supplemental views and ultrasound if indicated. Electronically signed and approved by: Bernard Arzate M.D. Radiologist
== END | disposition home or self-care (01) ==
LOC: RADMAMWWP 06:39
PROVIDERS: ATTEND Family Medicine
DX: Z12.31 Encounter for screening mammogram for malignant neoplasm of breast (principal); Z78.0 Asymptomatic menopausal state; Z80.3 Family history of malignant neoplasm of breast
CPT/HCPCS: 77063; 77067

== ENCOUNTER → 2022-09-28 | Outpatient (CLI) | payer MEDICARE, OTHER ==
--- NOTE | 2022-09-28 08:40 | MM ---
Reason for Exam: Additional evaluation requested from abnormal screening. Last screening mammogram was performed less than 1 month ago. Patient History: Menarche at age 13. First Full-Term at age 19. Postmenopausal. Patient has history of breast feeding. Endometrial cancer, age 34. Maternal cousin had breast cancer, age 62. Paternal cousin had ovarian cancer under age 50. Paternal cousin had ovarian cancer. Risk Values: Krystal 5 year model risk: 1.7%. NCI Lifetime model risk: 6.0%. Tissue Density: Right: There are scattered fibroglandular densities. Findings: Analyzed By CAD. Suspicious mass or architectural distortion within the right breast. Group of calcifications within the anterior upper outer quadrant of the right breast demonstrate a coarse benign morphology. No suspicious mass or architectural distortion within the right breast. Group of calcifications within the anterior upper outer quadrant of the right breast demonstrate a coarse benign morphology. Overall Assessment: Benign, BI-RAD 2 Management: Screening Mammogram of both breasts in 1 year. A clinical breast exam by your physician is recommended on an annual basis and results should be correlated with mammographic findings. This exam should not preclude additional follow-up of suspicious palpable abnormalities. Results were given to the patient verbally at the time of exam. Note on Krystal scores and lifetime risk: 1. A Krystal score greater than 3% is considered moderate risk. If this is the case, consider specialist referral to assess eligibility for a risk reducing agent. If overall lifetime risk for the development of breast cancer is 20% or higher, the patient may qualify for future screening with alternating mammogram and breast MRI. Electronically signed and approved by: Agapito Weller D.O.
== END | disposition home or self-care (01) ==
LOC: RADMAMWWP 07:58
PROVIDERS: ATTEND Family Medicine
DX: R92.8 Other abnormal and inconclusive findings on diagnostic imaging of breast (principal); Z78.0 Asymptomatic menopausal state; Z80.3 Family history of malignant neoplasm of breast
CPT/HCPCS: 77061; 77065

== ENCOUNTER 2023-03-16 08:29 | Emergency (ER) | payer MEDICARE, OTHER ==
[2023-03-16 09:18] VITALS: RESP 18
--- NOTE | 2023-03-16 09:22 | ED ---
Back Pain HPI - General Chief Complaint: Back Pain/Injury Stated Complaint: Back Pain Time Seen by Provider: 03/16/23 08:35 Source: patient, RN notes reviewed Limitations: no limitations - History of Present Illness Initial Comments: 68 show female presents emergency department she went right-sided back pain. Patient states that she's been doing this for a while seemed worsening. Patient has quite a mild dysuria no frequency or blood noted in her urine. Denies any fevers chills no chest pain no trauma she has pain is worse with movement. - Related Data Home Medications Medication Instructions Recorded Confirmed Chlorthalidone [Hygroton] 25 mg PO DAILY 07/21/22 07/21/22 Docusate [Colace] 100 mg PO DAILY 07/21/22 07/21/22 Pregabalin 75 mg PO TID 07/21/22 07/21/22 amLODIPine [Norvasc] 10 mg PO DAILY 07/21/22 07/21/22 sitaGLIPtin [Januvia] 100 mg PO DAILY 07/21/22 07/21/22 Previous Rx's Medication Instructions Recorded Ibuprofen [Motrin] 600 mg PO Q8HR PRN #20 tab 03/16/23 Nitrofurantoin Monohyd/M-Cryst 100 mg PO Q12HR #20 cap 03/16/23 [Macrobid] methocarbamoL [Robaxin] 500 mg PO TID PRN #15 tab 03/16/23 Allergies Allergy/AdvReac Type Severity Reaction Status Date / Time lactose Allergy Unknown Abdominal Verified 03/16/23 08:34 Pain, Gas , Nausea codeine Allergy Rash/Hives Verified 03/16/23 08:34 morphine Allergy Rash/Hives/ Verified 03/16/23 08:34 ITCHING tramadol Allergy Rash/Hives Verified 03/16/23 08:34 Review of Systems ROS Statement: Those systems with pertinent positive or pertinent negative responses have been documented in the HPI. ROS Other: All systems not noted in ROS Statement are negative. 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, chronic sinusitis, recurrent uti's, urinary incontinence, frequent nose bleeds, bulging disc in neck and back, scoliosis, carbon monoxide poisoning 2008, hx sleep walking and talking History of Any Multi-Drug Resistant Organisms: None Reported Past Surgical History: No Surgical Hx Reported Additional Past Surgical History / Comment(s): D & C, EGD Past Anesthesia/Blood Transfusion Reactions: Motion Sickness Past Psychological History: Anxiety, Depression Smoking Status: Never smoker Past Alcohol Use History: None Reported Past Drug Use History: None Reported - Past Family History Father Family Medical History: Cancer Additional Family Medical History / Comment(s): type unk for cancer Mother History Unknown: Yes Family Medical History: Congestive Heart Failure (CHF) General Exam Limitations: no limitations General appearance: alert, in no apparent distress Head exam: Present: atraumatic, normocephalic, normal inspection Eye exam: Present: normal appearance, PERRL, EOMI. Absent: scleral icterus, conjunctival injection, periorbital swelling Respiratory exam: Present: normal lung sounds bilaterally. Absent: respiratory distress, wheezes, rales, rhonchi, stridor Cardiovascular Exam: Present: regular rate, normal rhythm, normal heart sounds. Absent: systolic murmur, diastolic murmur, rubs, gallop, clicks GI/Abdominal exam: Present: soft, normal bowel sounds. Absent: distended, tenderness, guarding, rebound, rigid Extremities exam: Present: normal inspection, full ROM, normal capillary refill. Absent: tenderness, pedal edema, joint swelling, calf tenderness Back exam: Present: full ROM, tenderness, CVA tenderness (R). Absent: CVA tenderness (L) Neurological exam: Present: alert Course Vital Signs 03/16/23 03/16/23 08:31 10:05 Temperature 97.9 F 98.2 F Pulse Rate 72 67 Respiratory 18 18 Rate Blood Pressure 141/82 138/79 O2 Sat by Pulse 98 98 Oximetry Medical Decision Making - Medical Decision Making Was pt. sent in by a medical professional or institution (, PA, SPARE HAND, urgent care, hospital, or long term...) When possible be specific @ -No Did you speak to anyone other than the patient for history (EMS, parent, family, police, friend...)? What history was obtained from this source @ -No Did you review nursing and triage notes (agree or disagree)? Why? @ -I reviewed and agree with nursing and triage notes Were old charts reviewed (outside hosp., previous admission, EMS record, old EKG, old radiological studies, urgent care reports/EKG's, long term records)? Report findings @ -No old charts were reviewed Differential Diagnosis (chest pain, altered mental status, abdominal pain women, abdominal pain men, vaginal bleeding, weakness, fever, dyspnea, syncope, headache, dizziness, GI bleed, back pain, seizure, CVA, palpatations, mental health, musculoskeletal)? @ -nDifferential Back Pain: Strain, zoster, cauda equina syndrome, epidural abscess, vertebral osteomyelitis, discitis, fracture, subluxation, disc herniation, DJD, spinal stenosis, dissection, AAA, pancreatitis, peptic ulcer disease, pyelonephritis, kidney stone, this is not meant to be an all-inclusive list. EKG interpreted by me (3pts min.). @ -None X-rays interpreted by me (1pt min.). @ -X-ray lumbar spine showing mild degenerative changes CT interpreted by me (1pt min.). @ -None done U/S interpreted by me (1pt. min.). @ -None done What testing was considered but not performed or refused? (CT, X-rays, U/S, labs)? Why? @ -None What meds were considered but not given or refused? Why? @ -None Did you discuss the management of the patient with other professionals (professionals i.e. , PA, SPARE HAND, lab, RT, psych nurse, social work coordinator, rubber stamp assembler, teacher, learning officer, case checker)? Give summary @ -No Was smoking cessation discussed for >3mins.? @ -No Was critical care preformed (if so, how long)? @ -No Were there social determinants of health that impacted care today? How? (Homelessness, low income, unemployed, alcoholism, drug addiction, transportation, low edu. Level, literacy, decrease access to med. care, assisted, rehab)? @ -No Was there de-escalation of care discussed even if they declined (Discuss DNR or withdrawal of care, Hospice)? DNR status @ -No What co-morbidities impacted this encounter? (DM, HTN, Smoking, COPD, CAD, Cancer, CVA, ARF, Chemo, Hep., AIDS, mental health diagnosis, sleep apnea, morbid obesity)? @ -None Was patient admitted / discharged? Hospital course, mention meds given and route, prescriptions, significant lab abnormalities, going to OR and other pertinent info. @ -[Discharge patient present for low back pain, right flank pain patient has evidence of UTI vitals are stable be discharged with antibiotics, analgesics return parameters discussed. Undiagnosed new problem with uncertain prognosis? @ -No Drug Therapy requiring intensive monitoring for toxicity (Heparin, Nitro, Insulin, Cardizem)? @ -No Were any procedures done? @ -No Diagnosis/symptom? @ -UTI, back pain Acute, or Chronic, or Acute on Chronic? @ -Acute Uncomplicated (without systemic symptoms) or Complicated (systemic symptoms)? @ -Uncomplicated Side effects of treatment? @ -No Exacerbation, Progression, or Severe Exacerbation? @ -No Poses a threat to life or bodily function? How? (Chest pain, [place], [place], pneumonia, PE, COPD, DKA, ARF, appy, cholecystitis, CVA, Diverticulitis, Homicidal, Suicidal, threat to staff... and all critical care pts) @ -No - Lab Data Lab Results 03/16/23 Range/Units 09:20 Urine Color Colorless Urine Appearance Cloudy H (Clear) Urine pH 5.5 (5.0-8.0) Ur Specific Pierce 1.008 (1.001-1.035) Urine Protein Trace H (Negative) Urine Glucose (UA) Negative (Negative) Urine Ketones Negative (Negative) Urine Blood Small H (Negative) Urine Nitrite Positive H (Negative) Urine Bilirubin Negative (Negative) Urine Urobilinogen <2.0 (<2.0) mg/dL Ur Leukocyte Esterase Large H (Negative) Urine RBC 12 H (0-5) /hpf Urine WBC 128 H (0-5) /hpf Urine WBC Clumps Many H (None) /hpf Ur Squamous Epith Cells 1 (0-4) /hpf Urine Bacteria Occasional H (None) /hpf Hyaline Casts 3 H (0-2) /lpf Urine Mucus Rare H (None) /hpf Disposition Clinical Impression: Back pain, UTI (urinary tract infection) Disposition: HOME SELF-CARE Condition: Stable Instructions (If sedation given, give patient instructions): Urinary Tract Infection in Women (ED) Additional Instructions: Please return to the Emergency Department if symptoms worsen or any other concerns. Prescriptions: Nitrofurantoin Monohyd/M-Cryst [Macrobid] 100 mg PO Q12HR #20 cap Ibuprofen [Motrin] 600 mg PO Q8HR PRN #20 tab PRN Reason: Pain methocarbamoL [Robaxin] 500 mg PO TID PRN #15 tab PRN Reason: muscle spasms Is patient prescribed a controlled substance at d/c from ED?: No Referrals: Davy Saenz DO [Primary Care Provider] - 1-2 days Time of Disposition: 09:58
[2023-03-16 09:31] LABS: Appearance,Urine Cloudy (Clear); Bacteria,Urine Occasional /hpf; Bilirubin,Urine Negative (Negative); Blood,Urine Small (Negative); Color,Urine Colorless; Glucose,Urine (UA) Negative (Negative); Hyaline Casts,Urine 3 /lpf (0-2); Ketones,Urine Negative (Negative); Leukocyte Esterase,Urine Large (Negative); Mucus,Urine Rare /hpf; Nitrite,Urine Positive (Negative); PH, Urine 5.5 (5.0-8.0); Protein,Urine Trace (Negative); RBC,Urine 12 /hpf (0-5); Specific Gravity,Urine 1.008 (1.001-1.035); Squamous Epithelial Cell,Urine 1 /hpf (0-4); Urobilinogen,Urine <2.0 mg/dL (<2.0); WBC,Urine 128 /hpf (0-5)
--- NOTE | 2023-03-16 09:41 | XR ---
EXAMINATION TYPE: XR lumbosacral spine 5 views DATE OF EXAM: 03/16/2023 Comparison: None Clinical History: 68-year-old female pain Findings: Absent T12 ribs. Hypertrophic facet arthropathy mid to lower lumbar spine. Mild multilevel degenerati ve disc disease. Vertebral body heights are preserved and alignment is maintained. Impression: Mild multilevel degenerative disc disease. Facet arthropathy mid to lower lumbar spine. No vertebral compression collapse or malalignment.
[2023-03-16 10:30] VITALS: BP 138/79; PULSE 67; TEMP 98.2
== END 2023-03-16 10:08 | disposition home or self-care (01) ==
LOC: EC 08:29
DX: N39.0 Urinary tract infection, site not specified (principal); M54.50 Low back pain, unspecified; I10 Essential (primary) hypertension; Z79.899 Other long term (current) drug therapy; Z88.5 Allergy status to narcotic agent; Z88.8 Allergy status to other drugs, medicaments and biological substances
CPT/HCPCS: 72110; 81001; 87086; 99283

== ENCOUNTER 2023-04-19 17:52 | Emergency (ER) | payer MEDICARE, OTHER ==
[2023-04-19 19:01] VITALS: RESP 18; TEMP 98.6
--- NOTE | 2023-04-19 19:22 | ED ---
Back Pain HPI - General Chief Complaint: Upper Respiratory Infection Stated Complaint: REINA Time Seen by Provider: 04/19/23 19:19 Source: patient Limitations: no limitations - History of Present Illness Initial Comments: 68 year old female presenting to the ED with a chief complaint of cough. States that this is been ongoing for the last 2 weeks. Also notes associated scratchy throat. No history of prior respiratory disease. Denies shortness of breath. No chest pain. Denies fever. No other complaints at this time. - Related Data Home Medications Medication Instructions Recorded Confirmed Chlorthalidone [Hygroton] 25 mg PO DAILY 07/21/22 07/21/22 Docusate [Colace] 100 mg PO DAILY 07/21/22 07/21/22 Pregabalin 75 mg PO TID 07/21/22 07/21/22 amLODIPine [Norvasc] 10 mg PO DAILY 07/21/22 07/21/22 sitaGLIPtin [Januvia] 100 mg PO DAILY 07/21/22 07/21/22 Previous Rx's Medication Instructions Recorded Ibuprofen [Motrin] 600 mg PO Q8HR PRN #20 tab 03/16/23 Nitrofurantoin Monohyd/M-Cryst 100 mg PO Q12HR #20 cap 03/16/23 [Macrobid] methocarbamoL [Robaxin] 500 mg PO TID PRN #15 tab 03/16/23 Allergies Allergy/AdvReac Type Severity Reaction Status Date / Time lactose Allergy Unknown Abdominal Verified 03/16/23 08:34 Pain, Gas , Nausea codeine Allergy Rash/Hives Verified 03/16/23 08:34 morphine Allergy Rash/Hives/ Verified 03/16/23 08:34 ITCHING tramadol Allergy Rash/Hives Verified 03/16/23 08:34 Review of Systems ROS Statement: Those systems with pertinent positive or pertinent negative responses have been documented in the HPI. ROS Other: All systems not noted in ROS Statement are negative. 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, chronic sinusitis, recurrent uti's, urinary incontinence, frequent nose bleeds, bulging disc in neck and back, scoliosis, carbon monoxide poisoning 2008, hx sleep walking and talking History of Any Multi-Drug Resistant Organisms: None Reported Past Surgical History: No Surgical Hx Reported Additional Past Surgical History / Comment(s): D & C, EGD Past Anesthesia/Blood Transfusion Reactions: Motion Sickness Past Psychological History: Anxiety, Depression Smoking Status: Never smoker Past Alcohol Use History: None Reported Past Drug Use History: None Reported - Past Family History Father Family Medical History: Cancer Additional Family Medical History / Comment(s): type unk for cancer Mother History Unknown: Yes Family Medical History: Congestive Heart Failure (CHF) General Exam - General Exam Comments Initial Comments: Visual Physical Exam Vital signs reviewed General: Well-appearing, nontoxic, no acute distress. Head: Normocephalic, atraumatic Eyes: PERRLA, EOMI ENT: Airway patent Chest: Nonlabored breathing Skin: No visual rash, normal skin tone Neuro: Alert and oriented 3 Musculoskeletal: No gross abnormalities Limitations: no limitations General appearance: alert, in no apparent distress Eye exam: Present: normal appearance Neck exam: Present: normal inspection Respiratory exam: Present: normal lung sounds bilaterally, other (No tachypnea. No accessory muscle use.) Cardiovascular Exam: Present: regular rate, normal rhythm GI/Abdominal exam: Present: soft Neurological exam: Present: alert, oriented X3 Skin exam: Present: warm, dry Course Vital Signs 04/19/23 04/19/23 18:32 20:17 Temperature 98.6 F Pulse Rate 78 69 Respiratory 18 18 Rate Blood Pressure 145/81 128/72 O2 Sat by Pulse 97 100 Oximetry Medical Decision Making - Medical Decision Making Was pt. sent in by a medical professional or institution (, PA, OIL LABORATORY ANALYST, urgent care, hospital, or retirement...) When possible be specific @ -No Did you speak to anyone other than the patient for history (EMS, parent, family, police, friend...)? What history was obtained from this source @ -No Did you review nursing and triage notes (agree or disagree)? Why? @ -I reviewed and agree with nursing and triage notes Were old charts reviewed (outside hosp., previous admission, EMS record, old EKG, old radiological studies, urgent care reports/EKG's, retirement records)? Report findings @ -No old charts were reviewed Differential Diagnosis (chest pain, altered mental status, abdominal pain women, abdominal pain men, vaginal bleeding, weakness, fever, dyspnea, syncope, headache, dizziness, GI bleed, back pain, seizure, CVA, palpatations, mental health, musculoskeletal)? @ -Differential Dyspnea: Coronary syndrome, arrhythmia, tamponade, asthma, COPD, pulmonary embolism, pneumonia, pneumothorax, pulmonary effusion, anaphylaxis, diabetic ketoacidosis, flailed chest, pulmonary contusion, diaphragmatic rupture, anemia, neuromuscular, this is not meant to be an all-inclusive list. EKG interpreted by me (3pts min.). @ -None X-rays interpreted by me (1pt min.). @ -Chest x-ray interpreted me showing no evidence of acute finding. CT interpreted by me (1pt min.). @ -None done U/S interpreted by me (1pt. min.). @ -None done What testing was considered but not performed or refused? (CT, X-rays, U/S, labs)? Why? @ -None What meds were considered but not given or refused? Why? @ -None Did you discuss the management of the patient with other professionals (professionals i.e. , PA, OIL LABORATORY ANALYST, lab, RT, psych nurse, social work case manager, new car inspector, teacher, neighborhood conservation officer, case management director)? Give summary @ -No Was smoking cessation discussed for >3mins.? @ -No Was critical care preformed (if so, how long)? @ -No Were there social determinants of health that impacted care today? How? (Homelessness, low income, unemployed, alcoholism, drug addiction, transportation, low edu. Level, literacy, decrease access to med. care, [facility], rehab)? @ -No Was there de-escalation of care discussed even if they declined (Discuss DNR or withdrawal of care, Hospice)? DNR status @ -No What co-morbidities impacted this encounter? (DM, HTN, Smoking, COPD, CAD, Cancer, CVA, ARF, Chemo, Hep., AIDS, mental health diagnosis, sleep apnea, morbid obesity)? @ -Hypertension Was patient admitted / discharged? Hospital course, mention meds given and route, prescriptions, significant lab abnormalities, going to OR and other pertinent info. @ -Discharge 68-year-old female presenting to the ED with a chief complaint of cough. States that this has been ongoing for the last 2 weeks. Notes associated scratchy throat with this. States presenting today as she states the cough seems to have been worsening. Has not been using any medications for this. Chest x-ray here revealed no acute process. Exam showed no evidence that she has lung sounds. No evidence of respiratory distress. Vital signs stable afebrile. Symptoms likely viral in nature. Patient is saturating 100% on room air. Symptoms likely viral in nature. Discharged home in stable condition with instructions to follow-up with her PCP. Undiagnosed new problem with uncertain prognosis? @ -No Drug Therapy requiring intensive monitoring for toxicity (Heparin, Nitro, Insulin, Cardizem)? @ -No Were any procedures done? @ -No Diagnosis/symptom? @ -Cough Acute, or Chronic, or Acute on Chronic? @ -Acute Uncomplicated (without systemic symptoms) or Complicated (systemic symptoms)? @ -Uncomplicated Side effects of treatment? @ -No Exacerbation, Progression, or Severe Exacerbation? @ -No Poses a threat to life or bodily function? How? (Chest pain, [place], [place], pneumonia, PE, COPD, DKA, ARF, appy, cholecystitis, CVA, Diverticulitis, Homicidal, Suicidal, threat to staff... and all critical care pts) @ -No - Lab Data Lab Results 04/19/23 Range/Units 19:24 Influenza Type A (PCR) Not Detected (Not Detectd) Influenza Type B (PCR) Not Detected (Not Detectd) RSV (PCR) Not Detected (Not Detectd) SARS-CoV-2 (PCR) Not Detected (Not Detectd) Disposition Clinical Impression: Cough Disposition: HOME SELF-CARE Condition: Good Instructions (If sedation given, give patient instructions): Upper Respiratory Infection (ED) Additional Instructions: Please return to the Emergency Department if symptoms worsen or any other concerns. Please follow up with your PCP. Is patient prescribed a controlled substance at d/c from ED?: No Referrals: Davy Saenz DO [Primary Care Provider] - 1-2 days Time of Disposition: 21:08
--- NOTE | 2023-04-19 20:21 | XR ---
EXAMINATION TYPE: XR chest 2V DATE OF EXAM: 04/19/2023 7:37 PM CLINICAL INDICATION:Female, 68 years old with history of r/o pna; [facility] COMPARISON: Chest radiographs from 08/07/2019. TECHNIQUE: XR chest 2V Frontal and lateral views of the chest. FINDINGS: Lungs/Pleura: There is no evidence of pleural effusion, focal consolidation, or pneumothorax. Pulmonary vascularity: Unremarkable. Heart/mediastinum: Cardiomediastinal silhouette is unremarkable. Musculoskeletal: No acute osseous pathology. Other findings: None IMPRESSION: No acute cardiopulmonary disease/process.
[2023-04-19 20:22] VITALS: BP 128/72; PULSE 69
== END 2023-04-19 21:22 | disposition home or self-care (01) ==
LOC: EC 17:52
DX: R05.9 Cough, unspecified (principal); I10 Essential (primary) hypertension; Z20.822 Contact with and (suspected) exposure to COVID-19; Z79.899 Other long term (current) drug therapy; Z88.5 Allergy status to narcotic agent; Z91.011 Allergy to milk products
CPT/HCPCS: 71046; 87636

== ENCOUNTER 2023-08-07 09:21 | Emergency (ER) | payer MEDICARE, OTHER ==
[2023-08-07 09:26] VITALS: RESP 18; TEMP 97.9
--- NOTE | 2023-08-07 10:19 | XR ---
EXAMINATION TYPE: XR lumbar spine 2 or 3V DATE OF EXAM: 08/07/2023 CLINICAL HISTORY: pain TECHNIQUE: Three views of the lumbar spine are submitted. COMPARISON: None. FINDINGS: There are 5 lumbar type vertebral bodies identified. The lumbar spine shows satisfactory alignment w ithout evidence of acute fracture or dislocation. Vertebral body heights are within normal limits. Mild multilevel degenerative disc space narrowing. The overlying soft tissue appears unremarkable. IMPRESSION: No acute fracture or dislocation is seen in the lumbar spine. ICD 10 NO FRACTURE, INITIAL EVALUATION
--- NOTE | 2023-08-07 10:20 | XR ---
EXAMINATION TYPE: XR Hip LT and AP Pelvis DATE OF EXAM: 08/07/2023 CLINICAL HISTORY: pain TECHNIQUE: AP and frogleg views of the left hip are obtained. Single view of the pelvis is also subm itted. COMPARISON: None. FINDINGS: There is no acute fracture/dislocation evident. The joint space appears within normal li mits. The overlying soft tissue appears unremarkable. IMPRESSION: 1. There is no acute fracture or dislocation.ICD 10 NO FRACTURE, INITIAL EVALUATION
--- NOTE | 2023-08-07 10:35 | ED ---
General Adult HPI - General Chief complaint: Extremity Injury, Lower Stated complaint: L Hip Pain Time Seen by Provider: 08/07/23 09:31 Source: patient, RN notes reviewed Mode of arrival: ambulatory Limitations: no limitations - History of Present Illness Initial comments: 68-year-old female presents emergency department complaint left hip pain, leg pain. Patient states she fell a month ago states that she has some soreness but recently she started having pain that starts around her hip back and radiates down her leg she states does not feel like it is radiating from her back but states she does have a history of sciatica on the right. Patient denies any bowel, bladder incontinence retention no saddle anesthesias. Patient states pain is worse when she lays flat. - Related Data Home Medications Medication Instructions Recorded Confirmed Chlorthalidone [Hygroton] 25 mg PO DAILY 07/21/22 07/21/22 Docusate [Colace] 100 mg PO DAILY 07/21/22 07/21/22 Pregabalin 75 mg PO TID 07/21/22 07/21/22 amLODIPine [Norvasc] 10 mg PO DAILY 07/21/22 07/21/22 sitaGLIPtin [Januvia] 100 mg PO DAILY 07/21/22 07/21/22 Previous Rx's Medication Instructions Recorded Ibuprofen [Motrin] 600 mg PO Q8HR PRN #20 tab 03/16/23 Nitrofurantoin Monohyd/M-Cryst 100 mg PO Q12HR #20 cap 03/16/23 [Macrobid] methocarbamoL [Robaxin] 500 mg PO TID PRN #15 tab 03/16/23 Cyclobenzaprine [Flexeril] 10 mg PO TID PRN #15 tab 08/07/23 predniSONE 50 mg PO DAILY #5 tab 08/07/23 Allergies Allergy/AdvReac Type Severity Reaction Status Date / Time lactose Allergy Unknown Abdominal Verified 08/07/23 09:26 Pain, Gas , Nausea codeine Allergy Rash/Hives Verified 08/07/23 09:26 morphine Allergy Rash/Hives/ Verified 08/07/23 09:26 ITCHING tramadol Allergy Rash/Hives Verified 08/07/23 09:26 Review of Systems ROS Statement: Those systems with pertinent positive or pertinent negative responses have been documented in the HPI. ROS Other: All systems not noted in ROS Statement are negative. 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, chronic sinusitis, recurrent uti's, urinary incontinence, frequent nose bleeds, bulging disc in neck and back, scoliosis, carbon monoxide poisoning 2007, hx sleep walking and talking History of Any Multi-Drug Resistant Organisms: None Reported Past Surgical History: No Surgical Hx Reported Additional Past Surgical History / Comment(s): D & C, EGD Past Anesthesia/Blood Transfusion Reactions: Motion Sickness Past Psychological History: Anxiety, Depression Smoking Status: Never smoker Past Alcohol Use History: None Reported Past Drug Use History: None Reported - Past Family History Father Family Medical History: Cancer Additional Family Medical History / Comment(s): type unk for cancer Mother History Unknown: Yes Family Medical History: Congestive Heart Failure (CHF) General Exam General appearance: alert, in no apparent distress Head exam: Present: atraumatic, normocephalic, normal inspection Eye exam: Present: normal appearance, PERRL, EOMI. Absent: scleral icterus, conjunctival injection, periorbital swelling ENT exam: Present: normal exam, normal oropharynx, mucous membranes moist Neck exam: Present: normal inspection, full ROM. Absent: tenderness, meningismus, lymphadenopathy Respiratory exam: Present: normal lung sounds bilaterally. Absent: respiratory distress, wheezes, rales, rhonchi, stridor Cardiovascular Exam: Present: regular rate, normal rhythm, normal heart sounds. Absent: systolic murmur, diastolic murmur, rubs, gallop, clicks GI/Abdominal exam: Present: soft, normal bowel sounds. Absent: distended, tenderness, guarding, rebound, rigid Extremities exam: Present: other (Left hip there is tenderness with full range of motion neurovascular intact leg) Back exam: Present: full ROM, tenderness, paraspinal tenderness. Absent: CVA tenderness (R), CVA tenderness (L), vertebral tenderness Neurological exam: Present: alert, oriented X3, CN II-XII intact, reflexes normal. Absent: motor sensory deficit Course Vital Signs 08/07/23 09:22 Temperature 97.9 F Pulse Rate 70 Respiratory 18 Rate Blood Pressure 134/66 O2 Sat by Pulse 98 Oximetry Medical Decision Making - Medical Decision Making Was pt. sent in by a medical professional or institution (CHRISTINE Caldwell, FLIGHT OPERATIONS ENGINEER, urgent care, hospital, or custodial...) When possible be specific @ -No Did you speak to anyone other than the patient for history (EMS, parent, family, police, friend...)? What history was obtained from this source @ -No Did you review nursing and triage notes (agree or disagree)? Why? @ -I reviewed and agree with nursing and triage notes Were old charts reviewed (outside hosp., previous admission, EMS record, old EK G, old radiological studies, urgent care reports/EKG's, custodial records)? Report findings @ -No old charts were reviewed Differential Diagnosis (chest pain, altered mental status, abdominal pain women, abdominal pain men, vaginal bleeding, weakness, fever, dyspnea, syncope, headache, dizziness, GI bleed, back pain, seizure, CVA, palpatations, mental health, musculoskeletal)? @ -Differential Back Pain: Strain, zoster, cauda equina syndrome, epidural abscess, vertebral osteomyelitis, discitis, fracture, subluxation, disc herniation, DJD, spinal stenosis, dissection, AAA, pancreatitis, peptic ulcer disease, pyelonephritis, kidney stone, this is not meant to be an all-inclusive list. EKG interpreted by me (3pts min.). @ -None X-rays interpreted by me (1pt min.). @ -Lumbar spine showing degenerative changes, X-ray left hip no acute fracture or dislocation mild degenerative changes CT interpreted by me (1pt min.). @ -None done U/S interpreted by me (1pt. min.). @ -None done What testing was considered but not performed or refused? (CT, X-rays, U/S, labs)? Why? @ -None What meds were considered but not given or refused? Why? @ -None Did you discuss the management of the patient with other professionals (professionals i.e. CHRISTINE Caldwell, FLIGHT OPERATIONS ENGINEER, lab, RT, psych nurse, family welfare social work professor, truck headlight assembler, teacher, hospital security officer, rn field case manager)? Give summary @ -No Was smoking cessation discussed for >3mins.? @ -No Was critical care preformed (if so, how long)? @ -No Were there social determinants of health that impacted care today? How? (Homelessness, low income, unemployed, alcoholism, drug addiction, transportation, low edu. Level, literacy, decrease access to med. care, retirement, rehab)? @ -No Was there de-escalation of care discussed even if they declined (Discuss DNR or withdrawal of care, Hospice)? DNR status @ -No What co-morbidities impacted this encounter? (DM, HTN, Smoking, COPD, CAD, Cancer, CVA, ARF, Chemo, Hep., AIDS, mental health diagnosis, sleep apnea, morbid obesity)? @ -None Was patient admitted / discharged? Hospital course, mention meds given and route, prescriptions, significant lab abnormalities, going to OR and other pertinent info. @ -[Discharge patient presented for left leg pain with radicular pain this may be originating from lumbar spine there are no acute fractures she was placed on short course of steroids and analgesics with follow-up with orthopedics. Undiagnosed new problem with uncertain prognosis? @ -No Drug Therapy requiring intensive monitoring for toxicity (Heparin, Nitro, Insulin, Cardizem)? @ -No Were any procedures done? @ -No Diagnosis/symptom? @ -Left hip pain, lumbar radiculopathy Acute, or Chronic, or Acute on Chronic? @ -Acute Uncomplicated (without systemic symptoms) or Complicated (systemic symptoms)? @ -Uncomplicated Side effects of treatment? @ -No Exacerbation, Progression, or Severe Exacerbation? @ -No Poses a threat to life or bodily function? How? (Chest pain, [place], [place], pneumonia, PE, COPD, DKA, ARF, appy, cholecystitis, CVA, Diverticulitis, Homicidal, Suicidal, threat to staff... and all critical care pts) @ -No Disposition Clinical Impression: Lumbar radiculopathy, acute, Hip pain Disposition: HOME SELF-CARE Condition: Stable Instructions (If sedation given, give patient instructions): Hip Pain (ED) Additional Instructions: Please return to the Emergency Department if symptoms worsen or any other concerns. Prescriptions: Cyclobenzaprine [Flexeril] 10 mg PO TID PRN #15 tab PRN Reason: Muscle Spasm predniSONE 50 mg PO DAILY #5 tab Is patient prescribed a controlled substance at d/c from ED?: No Referrals: Davy Saenz DO [Primary Care Provider] - 1-2 days Lisbeth Garcia DO [Doctor of Osteopathic Medicine] - 1-2 days Time of Disposition: 10:34
[2023-08-07 10:55] VITALS: BP 151/81; PULSE 69
== END 2023-08-07 10:55 | disposition home or self-care (01) ==
LOC: EC 09:21
DX: M54.16 Radiculopathy, lumbar region (principal); Z88.5 Allergy status to narcotic agent; Z91.011 Allergy to milk products
CPT/HCPCS: 72100; 73502; 99283

== ENCOUNTER 2024-02-18 10:39 | Emergency (ER) | payer MEDICARE, OTHER ==
[2024-02-18 10:48] VITALS: RESP 18
--- NOTE | 2024-02-18 11:05 | ED ---
Dizziness HPI - General Chief Complaint: Dizziness Stated Complaint: vertigo Time Seen by Provider: 02/18/24 10:51 Source: patient, RN notes reviewed Mode of arrival: ambulatory Limitations: no limitations - History of Present Illness Initial Comments: 69-year-old female presents emergency department complaint of dizziness x 3 weeks she states it does wax and wane states that typically with movement states room spinning she does have a history of vertigo seems very similar she was started on low-dose meclizine recently with no significant improvement denies any weakness denies chest pain or shortness of breath. She has had mild nasal congestion with her allergies. Patient denies palpitations shortness of breath or any other associated weakness or symptoms. - Related Data Home Medications Medication Instructions Recorded Confirmed Pregabalin 75 mg PO BID 07/21/22 02/18/24 amLODIPine [Norvasc] 10 mg PO DAILY 07/21/22 02/18/24 sitaGLIPtin [Januvia] 100 mg PO DAILY 07/21/22 02/18/24 Atorvastatin [Lipitor] 10 mg PO HS 02/18/24 02/18/24 Fluticasone Nasal Morgan [Flonase 2 spray EA NOSTRIL DAILY PRN 02/18/24 02/18/24 Nasal Morgan] Loratadine 10 mg PO DAILY 02/18/24 02/18/24 Meclizine [Antivert] 25 mg PO TID PRN 02/18/24 02/18/24 lisinopriL [Zestril] 10 mg PO DAILY 02/18/24 02/18/24 Allergies Allergy/AdvReac Type Severity Reaction Status Date / Time lactose Allergy Unknown Abdominal Verified 02/18/24 12:11 Pain, Gas , Nausea codeine Allergy Rash/Hives Verified 02/18/24 12:11 morphine Allergy Rash/Hives/ Verified 02/18/24 12:11 ITCHING tetracycline Allergy Rash/Hives Verified 02/18/24 12:11 tramadol Allergy Rash/Hives Verified 02/18/24 12:11 Review of Systems ROS Statement: Those systems with pertinent positive or pertinent negative responses have been documented in the HPI. ROS Other: All systems not noted in ROS Statement are negative. 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, chronic sinusitis, recurrent uti's, urinary incontinence, frequent nose bleeds, bulging disc in neck and back, scoliosis, carbon monoxide poisoning 2007, hx sleep walking and talking History of Any Multi-Drug Resistant Organisms: None Reported Past Surgical History: No Surgical Hx Reported Additional Past Surgical History / Comment(s): D & C, EGD Past Anesthesia/Blood Transfusion Reactions: Motion Sickness Past Psychological History: Anxiety, Depression Smoking Status: Never smoker Past Alcohol Use History: None Reported Past Drug Use History: None Reported - Past Family History Father Family Medical History: Cancer Additional Family Medical History / Comment(s): type unk for cancer Mother History Unknown: Yes Family Medical History: Congestive Heart Failure (CHF) General Exam Limitations: no limitations General appearance: alert, in no apparent distress Head exam: Present: atraumatic, normocephalic, normal inspection Eye exam: Present: normal appearance, PERRL, EOMI. Absent: scleral icterus, conjunctival injection, periorbital swelling ENT exam: Present: normal exam, mucous membranes moist Neck exam: Present: normal inspection, full ROM. Absent: tenderness, meningismus, lymphadenopathy Respiratory exam: Present: normal lung sounds bilaterally. Absent: respiratory distress, wheezes, rales, rhonchi, stridor Cardiovascular Exam: Present: regular rate, normal rhythm, normal heart sounds. Absent: systolic murmur, diastolic murmur, rubs, gallop, clicks Neurological exam: Present: alert, oriented X3, CN II-XII intact, reflexes normal. Absent: motor sensory deficit Course Vital Signs 02/18/24 02/18/24 02/18/24 10:44 11:28 13:00 Temperature 98.4 F 98 F Pulse Rate 81 63 71 Respiratory 18 18 18 Rate Blood Pressure 115/73 113/55 116/62 O2 Sat by Pulse 98 97 97 Oximetry EKG Findings - EKG Comments: EKG Findings:: EKG performed at 11: 01 sinus rhythm rate of 68 CT 178 QRS 72 QT/QTc 361/379 - EKG Results: EKG: interpreted by DERRICK Medical Decision Making - Medical Decision Making Was pt. sent in by a medical professional or institution (, PA, PERSONNEL ANALYST, urgent care, hospital, or residential...) When possible be specific @ -No Did you speak to anyone other than the patient for history (EMS, parent, family, police, friend...)? What history was obtained from this source @ -No Did you review nursing and triage notes (agree or disagree)? Why? @ -I reviewed and agree with nursing and triage notes Were old charts reviewed (outside hosp., previous admission, EMS record, old EKG, old radiological studies, urgent care reports/EKG's, residential records)? Report findings @ -No old charts were reviewed Differential Diagnosis (chest pain, altered mental status, abdominal pain women, abdominal pain men, vaginal bleeding, weakness, fever, dyspnea, syncope, headache, dizziness, GI bleed, back pain, seizure, CVA, palpatations, mental health, musculoskeletal)? @ -Differential Dizziness: Benign paroxysmal positional Vertigo, Meniere's disease, otitis media, acoustic neuroma, vertebrobasilar insufficiency, cerebellar stroke, encephalitis, hypovolemic, arrhythmia, coronary artery syndrome, anemia, this is not meant to be an all-inclusive list EKG interpreted by me (3pts min.). @ -As above X-rays interpreted by me (1pt min.). @ -None done CT interpreted by me (1pt min.). @ -CT brain showing no acute intracranial hemorrhage, mass effect no acute process U/S interpreted by me (1pt. min.). @ -None done What testing was considered but not performed or refused? (CT, X-rays, U/S, labs)? Why? @ -None What meds were considered but not given or refused? Why? @ -None Did you discuss the management of the patient with other professionals (professionals i.e. , PA, PERSONNEL ANALYST, lab, RT, psych nurse, social worker psychiatric, vet tech, teacher, police officer, senior case manager)? Give summary @ -No Was smoking cessation discussed for >3mins.? @ -No Was critical care preformed (if so, how long)? @ -No Were there social determinants of health that impacted care today? How? (Homelessness, low income, unemployed, alcoholism, drug addiction, transportation, low edu. Level, literacy, decrease access to med. care, fci, rehab)? @ -No Was there de-escalation of care discussed even if they declined (Discuss DNR or withdrawal of care, Hospice)? DNR status @ -No What co-morbidities impacted this encounter? (DM, HTN, Smoking, COPD, CAD, Cancer, CVA, ARF, Chemo, Hep., AIDS, mental health diagnosis, sleep apnea, morbid obesity)? @ -None Was patient admitted / discharged? Hospital course, mention meds given and route, prescriptions, significant lab abnormalities, going to OR and other pertinent info. @ -Discharge patient presented for vertigo type symptoms patient does feel great improved this time she has no ataxia, no focal weakness. Patient negative workup and feels comfortable discharge. Undiagnosed new problem with uncertain prognosis? @ -No Drug Therapy requiring intensive monitoring for toxicity (Heparin, Nitro, Insulin, Cardizem)? @ -No Were any procedures done? @ -No Diagnosis/symptom? @ -Vertigo Acute, or Chronic, or Acute on Chronic? @ -Acute Uncomplicated (without systemic symptoms) or Complicated (systemic symptoms)? @ -Complicated Side effects of treatment? @ -No Exacerbation, Progression, or Severe Exacerbation? @ -No Poses a threat to life or bodily function? How? (Chest pain, [place], [place], pneumonia, PE, COPD, DKA, ARF, appy, cholecystitis, CVA, Diverticulitis, Homicidal, Suicidal, threat to staff... and all critical care pts) @ -No - Lab Data Result diagrams: 02/18/24 11:26 02/18/24 11:26 Lab Results 02/18/24 02/18/24 02/18/24 Range/Units 11:26 11:26 11:26 WBC 5.9 (3.8-10.6) k/uL RBC 4.52 (3.80-5.40) m/uL Hgb 12.3 (11.4-16.0) gm/dL Hct 37.3 (34.0-46.0) % MCV 82.4 (80.0-100.0) fL MCH 27.3 (25.0-35.0) pg MCHC 33.1 (31.0-37.0) g/dL RDW 12.5 (11.5-15.5) % Plt Count 297 (150-450) k/uL MPV 9.2 Neutrophils % 52 % Lymphocytes % 38 % Monocytes % 3 % Eosinophils % 4 % Basophils % 0 % Neutrophils # 3.0 (1.3-7.7) k/uL Lymphocytes # 2.3 (1.0-4.8) k/uL Monocytes # 0.2 (0-1.0) k/uL Eosinophils # 0.3 (0-0.7) k/uL Basophils # 0.0 (0-0.2) k/uL Sodium 142 (137-145) mmol/L Potassium 4.0 (3.5-5.1) mmol/L Chloride 109 H (98-107) mmol/L Carbon Dioxide 26 (22-30) mmol/L Anion Gap 7 mmol/L BUN 13 (7-17) mg/dL Creatinine 0.73 (0.52-1.04) mg/dL Est GFR (CKD-EPI)AfAm >90 (>60 ml/min/1.73 sqM) Est GFR (CKD-EPI)NonAf 86 (>60 ml/min/1.73 sqM) Glucose 116 H (74-99) mg/dL Calcium 9.6 (8.4-10.2) mg/dL Magnesium 1.8 (1.6-2.3) mg/dL Total Bilirubin 0.4 (0.2-1.3) mg/dL AST 21 (14-36) U/L ALT 16 (4-34) U/L Alkaline Phosphatase 126 (38-126) U/L Troponin I <0.012 (0.000-0.034) ng/mL Total Protein 7.4 (6.3-8.2) g/dL Albumin 4.4 (3.5-5.0) g/dL Disposition Clinical Impression: Vertigo Disposition: HOME SELF-CARE Condition: Stable Instructions (If sedation given, give patient instructions): Dizziness (ED) Additional Instructions: Please return to the Emergency Department if symptoms worsen or any other concerns. Is patient prescribed a controlled substance at d/c from ED?: No Referrals: Davy Saenz DO [Primary Care Provider] - 1-2 days Time of Disposition: 12:47
[2024-02-18] MEDS: SODIUM CHLORIDE 0.9% 1,000 ML IV STA (11:29)
[2024-02-18 11:33] LABS: Basophils % (A) 0 %; Eosinophils # (A) 0.3 k/uL (0-0.7); Eosinophils % (A) 4 %; HCT 37.3 % (34.0-46.0); HGB 12.3 gm/dL (11.4-16.0); Lymphocytes # (A) 2.3 k/uL (1.0-4.8); Lymphocytes % (A) 38 %; MCH 27.3 pg (25.0-35.0); MCHC 33.1 g/dL (31.0-37.0); MCV 82.4 fL (80.0-100.0); Mean Platelet Volume 9.2; Monocytes # (A) 0.2 k/uL (0-1.0); Monocytes % (A) 3 %; Neutrophils % (A) 52 %; Platelet Count 297 k/uL (150-450); RBC 4.52 m/uL (3.80-5.40); RDW 12.5 % (11.5-15.5); WBC 5.9 k/uL (3.8-10.6)
[2024-02-18] MEDS: MECLIZINE 12.5 MG TAB PO STA (11:34)
[2024-02-18] MEDS: METOCLOPRAMIDE 5 MG/ML 2 ML VIAL IVP STA (11:35)
[2024-02-18 11:54] LABS: ALT 16 U/L (4-34); AST 21 U/L (14-36); African American GFR (CKD) >90 (>60 ml/min/1.73 sqM); Albumin 4.4 g/dL (3.5-5.0); Alkaline Phosphatase 126 U/L (38-126); Anion Gap 7 mmol/L; Blood Urea Nitrogen 13 mg/dL (7-17); Calcium 9.6 mg/dL (8.4-10.2); Carbon Dioxide 26 mmol/L (22-30); Chloride 109 mmol/L (98-107); Glucose 116 mg/dL (74-99); Magnesium 1.8 mg/dL (1.6-2.3); Non-African American GFR(CKD) 86 (>60 ml/min/1.73 sqM); Sodium 142 mmol/L (137-145); Total Bilirubin 0.4 mg/dL (0.2-1.3); Total Protein 7.4 g/dL (6.3-8.2)
--- NOTE | 2024-02-18 12:37 | CT ---
EXAMINATION TYPE: CT brain wo con DATE OF EXAM: 02/18/2024 11:57 AM COMPARISON: 08/07/2019. CLINICAL INDICATION: Female, 69 years old with history of dizziness, dizziness TECHNIQUE: Brain: Axial CT images of the brain were obtained with coronal and sagittal reformats created and rev iewed. Contrast used: None. Oral contrast used: None. CT DLP: 1126.4 mGycm, Automated exposure control for dose reduction was used. FINDINGS: Brain: Extra-axial spaces: No abnormal extra-axial fluid collections. Ventricular system: Within normal limits Cerebral parenchyma: Mineralization of the basal ganglia bilaterally. No acute intraparenchymal hemor rhage or mass effect. The purvis-white junction is well differentiated. Cerebellum: Unremarkable. Mass effect: No evidence of midline shift. Intracranial vasculature: unremarkable Soft tissues: Normal. Calvarium/osseous structures: No depressed skull fracture. Paranasal sinuses and mastoid air cells: Mild scattered paranasal sinus disease. Visualized orbits: Orbital contents are intact. IMPRESSION: No acute intracranial process. [facility], , 02/18/2024 12:35 PM
[2024-02-18 13:43] VITALS: BP 116/62; PULSE 71; TEMP 98
== END 2024-02-18 13:00 | disposition home or self-care (01) ==
LOC: EC 10:39
DX: R42 Dizziness and giddiness (principal); Z88.5 Allergy status to narcotic agent; Z91.011 Allergy to milk products; Z88.6 Allergy status to analgesic agent; Z88.8 Allergy status to other drugs, medicaments and biological substances
CPT/HCPCS: 36415; 93005; 80053; 83735; 84484; 85025; 70450; 99284; 96374; 96375; 96361; J2765; J3360

== ENCOUNTER → 2024-08-21 | Outpatient (CLI) | payer MEDICARE, OTHER ==
--- NOTE | 2024-08-21 15:00 | MM ---
Reason for Exam: Screening (asymptomatic). Last mammogram was performed 1 year(s) and 11 month(s) ago. Patient History: Menarche at age 13. First Full-Term at age 19. Postmenopausal. Patient has history of breast feeding. Endometrial cancer, age 34. Maternal cousin had breast cancer, age 62. Paternal cousin had ovarian cancer under age 50. Paternal cousin had ovarian cancer. Risk Values: Krystal 5 year model risk: 1.7%. NCI Lifetime model risk: 5.5%. Prior Study Comparison: 01/16/2017 Bilateral Screening Mammogram, [facility]. 09/21/2022 Bilateral MG 3D screening mammo w/cad, [facility]. 09/28/2022 Right MG 3D work up w/cad RT, [facility]. Tissue Density: There are scattered areas of fibroglandular density. Findings: Analyzed By CAD. Right breast: There is no suspicious group of microcalcifications or new suspicious mass. Left breast: There is no suspicious group of microcalcifications or new suspicious mass. Overall Assessment: Negative, BI-RAD 1 Management: Screening Mammogram of both breasts in [address] [facility] will attempt to contact patient to return for supplemental views and ultrasound if indicated. Patient should continue monthly self-breast exams. A clinical breast exam by your physician is recommended on an annual basis. This exam should not preclude additional follow-up of suspicious palpable abnormalities. Note on Krystal scores and lifetime risk: 1. A Krystal score greater than 3% is considered moderate risk. If this is the case, consider specialist referral to assess eligibility for a risk reducing agent. 2. If overall lifetime risk for the development of breast cancer is 20% or higher, the patient may qualify for future screening with alternating mammogram and breast MRI. [facility], , 08/21/2024 2:58 PM. Electronically signed and approved by: Edmund Cruz DO
== END | disposition home or self-care (01) ==
LOC: RADMAMWWP 14:26
PROVIDERS: ATTEND Family Medicine
DX: Z12.31 Encounter for screening mammogram for malignant neoplasm of breast (principal); R92.323 Mammographic fibroglandular density, bilateral breasts; Z78.0 Asymptomatic menopausal state; Z80.3 Family history of malignant neoplasm of breast
CPT/HCPCS: 77063; 77067